=== PATIENT | male | born 1965 | race Caucasian/White ===

== ENCOUNTER → 2025-06-21 | Outpatient (CLI) | payer BC, SELFPAY ==
--- NOTE | 2025-06-21 13:34 | RAD_ITS ---
PROCEDURE: ORBITS FOR FOREIGN BODY 06/21/2025 REASON FOR EXAM: MRI CLEARANCE TECHNIQUE: Procedure Code: [id number]. Modality: DX Procedure: ORBITS FOR FOREIGN BODY COMPARISON: None FINDINGS: Bones: Metal artifact from dentures and dental amalgam. No worrisome radiopaque foreign body. Sinuses: Limited but grossly clear. Additional findings: No gross, depressed fracture. RAD/Orbits for Foreign Body IMPRESSION: No worrisome radiopaque foreign body. Reading Location: [id number]
--- NOTE | 2025-06-21 13:51 | MRI_ITS ---
PROCEDURE: BRAIN W/WO CONTRAST 06/21/2025 REASON FOR EXAM: TRANSIENT CEREBRAL ISCHEMIC ATTACK UNSPECIFIED TECHNIQUE: Procedure Code: [id number] Modality: MR Procedure: BRAIN W/WO CONTRAST Multiplanar and multisequence images were obtained. CONTRAST: VOLUME: mL FINDINGS: Scattered confluence and focal FLAIR hyperintensities throughout the bilateral cerebral white matter, nonspecific and nonenhancing. The brain parenchyma appears otherwise unremarkable. The midline structures are intact, specifically the corpus callosum, septum pellucidum, pituitary gland, and cerebellar vermis. The cervicomedullary junction appears unremarkable. The orbits and their contents appear unremarkable. The visualized paranasal sinuses and mastoid air cells are clear. Diffusion-weighted images demonstrate no acute process. No abnormal enhancement pattern. MRI/Brain W/WO Contrast IMPRESSION: 1. Nonspecific, nonenhancing FLAIR hyperintensities within the bilateral cereb ral white matter, probably representing chronic microvascular ischemic changes. Similar findings can also be seen in patients experiencing migraine headaches. A demyelinating process is less likely. Reading Location: [id number]
--- OUTSIDE RECORDS SUMMARY | 2025-06-21 21:15 | XMS RPT_ITS | CCD ---
Author Organization [facility] Care Team Providers Care Automotive Alignment Specialist Name Role Phone REYNA CAMPBELL, SCOTT Primary Care Physician REYNA CAMPBELL, SCOTT Primary Care Cindy CAMPBELL, SCOTT Attending Pineda e REYNA OMER-SHOE PARTS CASER, SCOTT Primary Care Pineda CORDOBA MD, TONE Willard Attending Paddy able REYNA OMER-SHOE [employer] CASER, SCOTT Primary Care Pineda LAN MD, DR FRANK Attending Pineda ORELLANA TRIPE COOKER-SHOE PARTS CASER, SCOTT Primary Care [facility]ineda [facility] Anne Attending Andrew nunez Allergies Allergy Classification Reported Allergen(s) Allergy Type Date of Onset Reaction(s) Facility (1 source) Penicillins; Translations: [penicillins] Drug allergy SOB [facility] (1 source) Penicillin; Translations: [penicillins] Drug Allergy SOB [facility] Medications Current Medications Medication Drug Class(es) Dates Sig (Normalized) Sig (Original) Ascorbic Acid (2 sources) Vitamin C Start: 12-23-2024 take 1 tablet by mouth once daily Vitamin C 1 tab(s), Oral, qDay, unsure of mg, 0 Refill(s) Start Date: 12/23/24 Status: Ordered Medication Dispense Status: Completed Total Allowed Fills: 1 Fills Dispensed: 0 Start: 12-23-2024 take 1 tablet by hermann once daily Vitamin C 1 tab(s), Oral, qDay, unsure of mg, 0 Refill(s) Start Date: 12/23/24 Status: Ordered Repeat number: 1 MAGNESIUM GLUCONATE (2 sources) Start: 12-23-2024 take 1 tablet by mouth once daily magnesium gluconate 1 tab(s), Oral, qDay, unsure of mg, 0 Refill(s) Start Date: 12/23/24 Status: Ordered Medication Dispense Status: Completed Total Allowed Fills: 1 Fills Dispensed: 0 Start: 12-23-2024 take 1 tablet by hermann th once daily magnesium gluconate 1 tab(s), Oral, qDay, unsure of mg, 0 Refill(s) Start Date: 12/23/24 Status: Ordered Repeat number: 1 Niacin (2 sources) Nicotinic Acid Start: 12-23-2024 take 1 tablet by mouth once daily niacin 1 tab(s), Oral, qDay, unsure of mg, 0 Refill(s) Start Date: 12/23/24 Status: Ordered Medication Dispense Status: Completed Total Allowed Fills: 1 Fills Dispensed: 0 Start: 12-23-2024 take 1 tablet by hermann th once daily niacin 1 tab(s), Oral, qDay, unsure of mg, 0 Refill(s) Start Date: 12/23/24 Status: Ordered Repeat number: 1 Vitamin A (2 sources) Vitamin A Start: 12-23-2024 take 1 tablet by mouth once daily vitamin A 1 tab(s), Oral, qDay, unsure of mg, 0 Refill(s) Start Date: 12/23/24 Status: Ordered Medication Dispense Status: Completed Total Allowed Fills: 1 Fills Dispensed: 0 Start: 12-23-2024 take 1 tablet by hermann th once daily vitamin A 1 tab(s), Oral, qDay, unsure of mg, 0 Refill(s) Start Date: 12/23/24 Status: Ordered Repeat number: 1 Vitamin D3 (2 sources) Start: 12-23-2024 take 1 tablet by hermann th once daily Vitamin D3 1 tab(s), Oral, Daily, unsure of mg, 0 Refill(s) Start Date: 12/23/24 Status: Ordered Medication Dispense Status: Completed Total Allowed Fills: 1 Fills Dispensed: 0 Start: 12-23-2024 take 1 tablet by hermann th once daily Vitamin D3 1 tab(s), Oral, Daily, unsure of mg, 0 Refill(s) Start Date: 12/23/24 Status: Ordered Repeat number: 1 Problems Problem Classification Problem Date Documented Da te Episodic/Chronic Chronic obstructive pulmonary disease and bronchiectasis (2 sources) Bronchitis 09-08-2022 Episodic Other nervous system disorders (1 source) Anesthesia of skin; Translations: [Anesthesia of skin] Onset: 06-10-2025 Episodic Other nervous system disorders (1 source) Anesthesia of skin; Translations: [Anesthesia of skin] Onset: 06-10-2025 Episodic Unclassified (2 sources) Patient encounter status 12-23-2024 Results Test Name Value Interpretation Reference Range Facility .Auto Diffon 06-10-2025 Basophil, Absolute 0.0 10 3/mcL Normal 0.0-0.3 [facility] Comment on above: Performed By: #### P RO, APTT, MDW, ANEU, ADIFF, CBC, TROPHS, BMP, GFR #### [address] [address] Basophils/100 WBC (Bld) 0.3 % Normal 0.0-2.5 [facility] Comment on above: Performed By: #### P RO, APTT, MDW, ANEU, ADIFF, CBC, TROPHS, BMP, GFR #### [address] [address] Eosinophil, Absolute 0.2 10 3/mcL Normal 0.0-0.7 [facility] Comment on above: Performed By: #### P RO, APTT, MDW, ANEU, ADIFF, CBC, TROPHS, BMP, GFR #### [address] [address] Eosinophils/100 WBC (Bld) 2.0 % Normal 0.0-6.0 [facility] Comment on above: Performed By: #### P RO, APTT, MDW, ANEU, ADIFF, CBC, TROPHS, BMP, GFR #### [address] [address] Lymphocyte, Absolute 2.8 10 3/mcL Normal 0.9-4.3 [facility] Comment on above: Performed By: #### P RO, APTT, MDW, ANEU, ADIFF, CBC, TROPHS, BMP, GFR #### [address] [address] Lymphocytes/100 WBC (Bld) 32.8 % Normal 20.0-40.0 [facility] Comment on above: Performed By: #### P RO, APTAlexa, MOMO, ANEU, ADIFF, CBC, TROPHS, BMP, GFR #### [id number] [place], [place] [address] Monocyte, Absolute 0.6 10 3/mcL Normal 0.1-1.4 [facility] Comment on above: Performed By: #### P RO, APTT, MDW, ANEU, ADIFF, CBC, TROPHS, BMP, GFR #### [id number] [place], [place] [address] Monocytes/100 WBC (Bld) 7.6 % Normal 2.0-13.0 [facility] Comment on above: Performed By: #### P AVILA, APTT, MOMO, ANEU, ADIFF, CBC, TROPHS, BMP, GFR #### [address] [address] Neutrophils/100 WBC (Bld) 57.3 % Normal 50.0-75.0 [facility] Comment on above: Performed By: #### P AVILA, APTAlexa, MOMO, ANEU, ADIFF, CBC, TROPHS, BMP, GFR #### [address] [address] .GFRon 06-10-2025 Estimated Glomerular Filtration Rate 100 ml/min/1.73sqm Normal [facility] Comment on above: Result Comment: Stages of Chronic Kidney Disease (CKD) Stage Description eGFR(ml/min/1.73 sq.m.) CKD 1 Normal kidney function or >=90 normal kindney function with possible kidney damage (ex. Proteinuria) CKD 2 Kidney damage with mild loss 60-89 of kidney function CKD 3a Mild to moderate loss of kidney 45-59 function CKD 3b Moderate to severe loss of 30-44 of kindey function CKD 4 Severe loss of kidney function 15-29 CKD 5 Kidney failure <15 Note: (go live 2024) the eGFR calculation was updated to the 2020 CKD-EPI creatinine equation without a race factor to calculate the eGFR results. Performed By: #### P TUSHAR GRAMAJO MDW, ANEU, ADIFF, CBC, TROPHS, BMP, GFR ####[address] [address] .MDWon 06-10-2025 Monocyte Distribution Width 16.46 Normal 0.00-20.00 [facility] Comment on above: Result Comment: For ED adult patients suspected of sepsis, MDW<=20.0 does not rule out sepsis or risk of sepsis Performed By: #### P RO, APTT, MDW, ANEU, ADIFF, CBC, TROPHS, BMP, GFR #### [address] [address] .NEUABSon 06-10-2025 Neutrophil, Absolute 4.8 10 3/mcL Normal 2.3-8.1 [facility] Comment on above: Performed By: #### P RO, APTT, MDW, ANEU, ADIFF, CBC, TROPHS, BMP, GFR #### [place] [address] Amanda 06-10-2025 Ethanol Level 15 mg/dL Normal [facility] Comment on above: Performed By: #### A LC #### [place] [id number] APTTon 06-10-2025 aPTT Coag (Bld) [Time] 28.0 s Normal 25.0-35.0 [facility] Comment on above: Result Comment: For Heparin anticoagulation therapy, the recommended therapeutic range is: 55.2-92.5 seconds. Patients on heparin therapy may have an extreme result. Performed By: #### P RO, APTT, MDW, ANEU, ADIFF, CBC, TROPHS, BMP, GFR ####[address] [address] BMPon 06-10-2025 BUN/Creatinine Ratio 20 ratio Normal 7-27 [facility] Comment on above: Performed By: #### P RO, APTT, MDW, ANEU, ADIFF, CBC, TROPHS, BMP, GFR ####[place] [id number] Calcium [Mass/Vol] 9.4 mg/dL Normal 8.4-10.2 [facility] Comment on above: Performed By: #### P RO, APTT, MDW, ANEU, ADIFF, CBC, TROPHS, BMP, GFR ####[address] [place], [place] [address] Chloride [Moles/Vol] 104 mmol/L Normal 98-107 [facility] Comment on above: Performed By: #### P RO, APTT, MDW, ANEU, ADIFF, CBC, TROPHS, BMP, GFR ####[address] [address] CO2 [Moles/Vol] 27 mmol/L Normal 23-31 [facility] Comment on above: Performed By: #### P RO, APTT, MDW, ANEU, ADIFF, CBC, TROPHS, BMP, GFR ####[address] [address] Creatinine [Mass/Vol] 0.82 mg/dL Normal 0.67-1.17 [facility] Comment on above: Performed By: #### P RO, APTT, MDW, ANEU, ADIFF, CBC, TROPHS, BMP, GFR ####[address] [address] Electrolyte Balance 7.0 mEq/L Normal 4.0-15.0 [facility] Comment on above: Performed By: #### P RO, APTT, MDW, ANEU, ADIFF, CBC, TROPHS, BMP, GFR ####[address] [address] Glucose [Mass/Vol] 94 mg/dL Normal 80-115 [facility] Comment on above: Performed By: #### P RO, APTT, MDW, ANEU, ADIFF, CBC, TROPHS, BMP, GFR ####[address] [address] Potassium [Moles/Vol] 3.8 mmol/L Normal 3.5-5.1 [facility] Comment on above: Performed By: #### P RO, APTT, MDW, ANEU, ADIFF, CBC, TROPHS, BMP, GFR ####[place] [address] Sodium [Moles/Vol] 138 mmol/L Normal 136-145 [facility] Comment on above: Performed By: #### P RO, APTT, MDW, ANEU, ADIFF, CBC, TROPHS, BMP, GFR ####[place] [address] Urea nitrogen [Mass/Vol] 16 mg/dL Normal 7-18 [facility] Comment on above: Performed By: #### P RO, APTT, MDW, ANEU, ADIFF, CBC, TROPHS, BMP, GFR ####[place] [address] CBCon 06-10-2025 Erythrocyte distribution width (RBC) [Ratio] 12.5 % Normal 11.5-15.5 [facility] Comment on above: Performed By: #### P RO, APTT, MDW, ANEU, ADIFF, CBC, TROPHS, BMP, GFR #### [place] [address] Hematocrit (Bld) [Volume fraction] 45.3 % Normal 40.0-52.0 [facility] Comment on above: Performed By: #### P RO, APTT, MDW, ANEU, ADIFF, CBC, TROPHS, BMP, GFR #### [address] [address] Hgb 15.6 G/dL Normal 13.0-17.5 [facility] Comment on above: Performed By: #### P RO, APTT, MDW, ANEU, ADIFF, CBC, TROPHS, BMP, GFR #### [place] [address] MCH (RBC) [Entitic mass] 31.6 pg Normal 27.0-33.0 [facility] Comment on above: Performed By: #### P RO, APTT, MDW, ANEU, ADIFF, CBC, TROPHS, BMP, GFR #### [address] [address] MCHC 34.4 G/dL Normal 32.0-36.0 [facility] Comment on above: Performed By: #### P RO, APTT, MDW, ANEU, ADIFF, CBC, TROPHS, BMP, GFR #### [address] [address] MCV (RBC) [Entitic vol] 91.9 fL Normal 81.0-100.0 [facility] Comment on above: Performed By: #### P RO, APTT, MDW, ANEU, ADIFF, CBC, TROPHS, BMP, GFR #### [place] [id number] Platelet 68 10 3/mcL Low 150-450 [facility] Comment on above: Performed By: #### P RO, APTT, MDW, ANEU, ADIFF, CBC, TROPHS, BMP, GFR #### [place] [phone] Platelet mean volume (Bld) [Entitic vol] 9.6 fL Normal 6.4-10.5 [facility] Comment on above: Performed By: #### P RO, APTT, MDW, ANEU, ADIFF, CBC, TROPHS, BMP, GFR #### [address] [address] RBC 4.93 10 6/mcL Normal 4.50-6.00 [facility] Comment on above: Performed By: #### P RO, APTT, MDW, ANEU, ADIFF, CBC, TROPHS, BMP, GFR #### [address] [address] WBC 8.4 10 3/mcL Normal 4.5-10.8 [facility] Comment on above: Performed By: #### P RO, APTT, MDW, ANEU, ADIFF, CBC, TROPHS, BMP, GFR #### [address] [address] [address] HEAD OR BRAIN W/O RICK Ton 06-10-2025 CT HEAD OR BRAIN W/O CONTRAST ORIGINAL EXAMINATION: CT OF THE HEAD WITHOUT CONTRAST 06/10/2025 9:01 pm TECHNIQUE: CT of the head was performed without the administration of intravenous contrast. Automated exposure control, iterative reconstruction, and/or weight based adjustment of the mA/kV was utilized to reduce the radiation dose to as low as reasonably achievable. COMPARISON: None. HISTORY: ORDERING SYSTEM PROVIDED HISTORY: Reason for Exam: left sided numbness since resolved change in mental status/weakness/aphasi a FINDINGS: BRAIN/VENTRICLES: There is no acute intracranial hemorrhage, mass effect or midline shift. No abnormal extra-axial fluid collection. The petersen-white differentiation is maintained without evidence of an acute infarct. There is no evidence of hydrocephalus. ORBITS: The visualized portion of the orbits demonstrate no acute abnormality. SINUSES: The visualized paranasal sinuses and mastoid air cells demonstrate no acute abnormality. SOFT TISSUES/SKULL: No acute abnormality of the visualized skull or soft tissues. IMPRESSION: No acute intracranial abnormality. Interpreted by: Jm Cornelius Preliminary Report By: Jm Cornelius Electronically signed By Jm Cornelius Dictated Date: 06/10/2025 9:23:05 PM Prelim Date: 06/10/2025 9:24:33 PM Sign Date: 06/10/2025 9:24:33 PM Ordering Provider: TONE Caballero [facility]ORATORYOrdered By: SYSTEM SYSTEM on 06-10-2025 aPTT Coag (PPP) [Time] 28.0 s Normal 25.0 - 35.0 seconds AO [facility] SS Comment on above: Interpretive Data: F or Heparin anticoagulation therapy, the recommended therapeutic range is: 55.2-92.5 seconds. Patients on heparin therapy may have an extreme result. Basophils (Bld) [#/Vol] 0.0 103/mcL Normal 0.0 - 0.3 10^3/mcL AO Workflow SS Basophils/100 WBC (Bld) 0.3 % Normal 0.0 - 2.5 % AO Workflow SS Calcium [Mass/Vol] 9.4 mg/dL Normal 8.4 - 10. 2 mg/dL AO ADM SS Chloride [Moles/Vol] 104 mmol/L Normal 98 - 10 7 mmol/L AO ADM SS CO2 [Moles/Vol] 27 mmol/L Normal 23 - 31 mmol/L AO ADM SS Creatinine [Mass/Vol] 0.82 mg/dL Normal 0.67 - 1.17 mg/dL AO ADM SS Electrolyte Balance 7.0 mEq/L Normal 4.0 - 15 .0 mEq/L AO ADM SS Eosinophil, Absolute 0.2 103/mcL Normal 0.0 - 0 .7 10^3/mcL AO Workflow SS Eosinophils/100 WBC (Bld) 2.0 % Normal 0.0 - 6.0 % AO Workflow SS Erythrocyte distribution width (RBC) [Ratio] 12.5 % Normal 11.5 - 15.5 % AO Workflow SS Estimated Glomerular Filtration Rate 100 ml/min/1.73sqm Invalid Interpretation Code AO Chemistry S Comment on above: Interpretive Data: Stages of Chronic Kidney Disease (CKD) Stage Description eGFR(ml/min/1.73 sq.m.) CKD 1 Normal kidney function or >=90 normal kindney function with possible kidney damage (ex. Proteinuria) CKD 2 Kidney damage with mild loss 60-89 of kidney function CKD 3a Mild to moderate loss of kidney 45-59 function CKD 3b Moderate to severe loss of 30-44 of kindey function CKD 4 Severe loss of kidney function 15-29 CKD 5 Kidney failure <15 Note: (go live 2024) the eGFR calculation was updated to the 2020 CKD-EPI creatinine equation without a race factor to calculate the eGFR results. Ethanol [Mass/Vol] 15 mg/dL Invalid Interpretation Code AO ADM SS Glucose [Mass/Vol] 94 mg/dL Normal 80 - 115 mg/dL AO ADM SS Hematocrit (Bld) [Volume fraction] 45.3 % Normal 40.0 - 52.0 % AO Workflow SS Hemoglobin (Bld) [Mass/Vol] 15.6 G/dL Normal 13.0 - 17.5 G/dL AO Workflow SS INR Coag (PPP) [Relative time] 1.0 {INR} Invalid Interpretation Code AO [facility] SS Comment on above: Interpretive Data: Alexa chaves [employer] (CHEST, 1992, 102:312S-25S) recommended therapeutic range for oral anticoagulant therapy is: LOW RISK: Prophylaxis of venous thrombosis INR: 2.0-3.0 Treatment of pulmonary embolism 2.0-3.0 Prevention of systemic embolism 2.0-3.0 HIGH RISK: Mechanical prosthetic valves 2.5-3.5 Lymphocytes (Bld) [#/Vol] 2.8 103/mcL Normal 0.9 - 4.3 10^3/mcL AO Workflow SS Lymphocytes/100 WBC (Bld) 32.8 % Normal 20.0 - 40.0 % AO Workflow SS MCH (RBC) [Entitic mass] 31.6 pg Normal 27.0 - 33.0 pg AO Workflow SS MCHC 34.4 G/dL Normal 32.0 - 36.0 G/dL AO Workflow SS MCV (RBC) [Entitic vol] 91.9 fL Normal 81.0 - 100.0 fL AO Workflow SS Monocyte distribution width Auto (Bld) [Entitic vol] 16.46 1 Normal 0.00 - 20.00 AO Workflow SS Comment on above: Result Comment: For ED adult patients suspected of sepsis, MDW<=20.0 does not rule out sepsis or risk of sepsis Monocytes (Bld) [#/Vol] 0.6 103/mcL Normal 0.1 - 1.4 10^3/mcL AO Workflow SS Monocytes/100 WBC (Bld) 7.6 % Normal 2.0 - 13.0 % AO Workflow SS Neutrophils (Bld) [#/Vol] 4.8 103/mcL Normal 2.3 - 8.1 10^3/mcL AO Workflow SS Neutrophils/100 WBC (Bld) 57.3 % Normal 50.0 - 75.0 % AO Workflow SS Platelet mean volume (Bld) [Entitic vol] 9.6 fL Normal 6.4 - 10.5 fL AO Workflow SS Platelets (Bld) [#/Vol] 68 103/mcL Low 150 - 450 10^3/mcL AO Workflow SS Potassium [Moles/Vol] 3.8 mmol/L Normal 3.5 - 5.1 mmol/L AO ADM SS PT Coag (PPP) [Time] 11.4 s Normal 9.0 - 1 4.4 seconds AO [facility] SS RBC (Bld) [#/Vol] 4.93 106/mcL Normal 4.50 - 6.0 0 10^6/mcL AO Workflow SS Sodium [Moles/Vol] 138 mmol/L Normal 136 - 145 mmol/L AO ADM SS Troponin I.cardiac DL <= 0.01 ng/mL [Mass/Vol] 5 ng/L Normal 0 - 76 ng/L AO ADM SS Comment on above: Interpretive Data: H igh Sensitive Troponin I Reference Ranges: Female: 0-51 ng/L Male: 0-76 ng/L Testing performed on Contin[employer] using a homogeneous sandwich chemiluminescent immunoassay based on OmniStrat technology. Urea nitrogen [Mass/Vol] 16 mg/dL Normal 7 - 18 mg/dL AO ADM SS Urea nitrogen/Creatinine [Mass ratio] 20 ratio Normal 7 - 27 ratio AO ADM SS WBC (Bld) [#/Vol] 8.4 103/mcL Normal 4.5 - 10.8 10^3/mcL AO Workflow SS PROon 06-10-2025 PT Coag (PPP) [Time] 11.4 s Normal 9.0-14.4 [facility] Comment on above: Performed By: #### P RO, APTT, MDW, ANEU, ADIFF, CBC, TROPHS, BMP, GFR ####[address] [place], [place] [address] PT International Ratio 1.0 Normal [facility] Comment on above: Result Comment: [employer] (CHEST, 1991, 102:312S-25S) recommended therapeutic range for oral anticoagulant therapy is: LOW RISK: Prophylaxis of venous thrombosis INR: 2.0-3.0 Treatment of pulmonary embolism 2.0-3.0 Prevention of systemic embolism 2.0-3.0 HIGH RISK: Mechanical prosthetic valves 2.5-3.5 Performed By: #### P RO, APTT, MDW, ANEU, ADIFF, CBC, TROPHS, BMP, GFR ####[address] [place], [place] [address] TROPHSon 06-10-2025 High Sensitivity Troponin I 5 ng/L Normal 0-76 [facility] Comment on above: Result Comment: High Sensitive Troponin I Reference Ranges: Female: 0-51 ng/L Male: 0-76 ng/L Testing performed on [employer] using a homogeneous sandwich chemiluminescent immunoassay based on OmniStrat technology. Performed By: #### P RO, APTT, MDW, ANEU, ADIFF, CBC, TROPHS, BMP, GFR ####[address] [place], [place] [address] XR CHEST 1 VIEWon 06-10-2025 XR CHEST 1 VIEW ORIGINAL EXAMINATION: ONE XRAY VIEW OF THE CHEST 06/10/2025 9:00 pm COMPARISON: CT chest 01/11/2025 HISTORY: ORDERING SYSTEM PROVIDED HISTORY: Reason for Exam: chest pain/SOB FINDINGS: There are subsegmental infiltrates at the medial right lower lung zone. There is no consolidation or pleural effusion. Cardiomediastinal silhouette is mildly enlarged in size. There is no pulmonary vascular congestion. There is no pneumothorax. Osseous structures demonstrate degenerative changes. IMPRESSION: There are subsegmental infiltrates at the medial right lower lung zone. There is no consolidation or pleural effusion. Interpreted by: Mario Low Preliminary Report By: Mario Low Electronically signed By Mario Low Dictated Date: 06/10/2025 10:10:36 PM Prelim Date: 06/10/2025 10:17:12 PM Sign Date: 06/10/2025 10:17:12 PM Ordering Provider: TONE CORDOBA [facility] XR SPINE CERVICAL 2 OR 3 EVA Mchugh 03-24-2025 XR SPINE CERVICAL 2 OR 3 VIEWS ORIGINAL EXAMINATION: 4 XRAY VIEWS OF THE CERVICAL SPINE 03/24/2025 4:50 pm COMPARISON: None. HISTORY: ORDERING SYSTEM PROVIDED HISTORY: Reason for Exam: pain FINDINGS: 7 cervical segments present in appropriate apposition and alignment. Moderate degenerative disc space narrowing affects C5-6 and C6-7. There is no bony encroachment upon the central spinal canal, although the canal is congenitally narrow in nature. No acute fracture is seen. IMPRESSION: 1. Degenerative disc disease C5-6 and C6-7. 2. Congenitally narrow cervical spinal canal. Interpreted by: Salvador Palafox DO Preliminary Report By: Salvador Palafox DO Electronically signed By Salvador Palafox DO Dictated Date: 03/24/2025 4:52:30 PM Prelim Date: 03/24/2025 4:53:21 PM Sign Date: 03/24/2025 4:53:21 PM Ordering Provider: TOSHA COBB [facility] Final Surgical Pathology Rep mary 01-31-2025 Final Surgical Pathology Report . Pathology Reports Accession: Collected Date/Time: Received Date/Time: Pathologist: [id number] 01/30/2025 08:35 EDT 01/30/2025 14:15 EDT JM AYON MD Final Surgical Pathology Report DIAGNOSIS: A. DISTAL SIGMOID COLON, POLYPECTOMY: - HYPERPLASTIC POLYP B. RECTUM, POLYPECTOMY: - TUBULAR ADENOMA CLINICAL INFORMATION: Procedure: COLONOSCOPY WITH POLYPECTOMY Preoperative diagnosis: HISTORY OF COLON POLYPS Postoperative diagnosis: HISTORY OF COLON POLYPS SPECIMEN: A DISTAL SIGMOID POLYP B RECTAL POLYP GROSS DESCRIPTION: All parts labelled with patient name and [id number] A. Received in formalin labeled distal sigmoid polyp are 4 fernandes-pink tissue fragments measuring 0.2 to 0.5 x 0.3 cm. TS-1 B. Received in formalin labeled rectal polyp is 1 fernandes-pink tissue fragment measuring 0.6 x 0.5 cm greatest dimension. TS-1 Kami Infante, Grossing Desulfurizer Hand/ Dr. Jm Ayon, Pathologist Performed by Kami Infante MICROSCOPIC DESCRIPTION: The microscopic examination is performed, except in the case of Gross Only. Verified by Pathology Report verified by [facility] JM AYON Sign out Date: 01/31/2025 14:23 Performing Lab: [facility], [address] [place] [address] Pathology Dept Disclaimer If ancillary studies were utilized, the following Laboratory Developed Test (LDT) disclaimer will apply: Under CLIA requirements, [facility] is qualified to perform high complexity testing. For all ancillary stains, positive and negative controls stain appropriately. Performance characteristics of immunohistochemical and chromogenic in-situ hybridization tests have been determined by [facility]. These tests are used for clinical purposes, They should not be regarded as investigational or for research. . Normal [facility] CT THORAX SCREENING W/O CONT RASTon 01-12-2025 CT THORAX SCREENING W/O CONTRAST ORIGINAL EXAMINATION: LOW DOSE SCREENING CT OF THE CHEST WITHOUT CONTRAST01/11/2025 4:18 pm TECHNIQUE: Low dose lung cancer screening CT of the chest was performed without the administration of intravenous contrast. Multiplanar reformatted images are provided for review. Automated exposure control, iterative reconstruction, and/or weight based adjustment of the mA/kV was utilized to reduce the radiation dose to as low as reasonably achievable. COMPARISON: None. HISTORY: ORDERING SYSTEM PROVIDED HISTORY: Reason for Exam: Lung Cancer Screening 5ft 10in 187lb white male. just quit smoking. 35 pack years. no current complaints, no family hx FINDINGS: The heart is normal in size. Atherosclerosis seen of the coronary arteries and aorta. The great vessels appear normal in caliber. Borderline enlarged AP window lymph node measuring 1 cm in short axis. No additional mediastinal, hilar or axillary lymph nodes. Mild bilateral gynecomastia. 3.2 cm low-attenuation right adrenal nodule demonstrating a mean Hounsfield unit of -6 is consistent with a lipid rich adenoma. No suspicious findings seen in the visualized portion of the abdomen. The abdomen is not evaluated in detail. Trachea and mainstem bronchi are patent. Minimal emphysema with scattered bilateral pleural and parenchymal scarring. No focal consolidation, pleural effusion or pneumothorax. 4 mm right upper lobe pulmonary nodule (series 4, image 48). 4 mm subpleural right lower lobe pulmonary nodule (series 4, image 83). Additional 4 mm right lower lobe subpleural pulmonary nodule (series 4, image 62). 2 mm right lung base nodule (series 4, image 99). Punctate calcified granuloma within the right middle lobe. No aggressive osseous lesions visible. Degenerative changes seen in the spine. IMPRESSION: Small lung nodules. For patients with appropriate lung cancer risk, annual CT screening is recommended. Coronary artery calcifications. 3.2 cm benign right lipid rich adrenal adenoma. Information below is for Lung nodule tracking purposes: Nodule: S3 BLN Other Findings: P-CAC Change: Na Recall : 1yr scr Recall Type: LDCT LungRads: 2s Interpreted by: Jm Han Preliminary Report By: Jm Han Electronically signed By Jm Han Dictated Date: 01/12/2025 8:02:02 AM Prelim Date: 01/12/2025 8:09:49 AM Sign Date: 01/12/2025 8:09:49 AM Ordering Provider: SCOTT ORELLANA [facility] Final Surgical Pathology Rep mary 03-14-2020 Final Surgical Pathology Report . Pathology Reports Accession: Collected Date/Time: Received Date/Time: Pathologist: [id number] 03/12/2020 08:16 EDT 03/13/2020 08:45 EDT MD CLAUDIO ORTIZ Final Surgical Pathology Report DIAGNOSIS: SIGMOID COLON, 25CM, BIOPSY - TUBULAR ADENOMA. COMMENT: [facility] - D# [id number] CLINICAL INFORMATION: Procedure: COLONOSCOPY WITH POLYPECTOMY Preoperative diagnosis: RECTAL BLEED Postoperative diagnosis: SAME SPECIMEN: A SIGMOID POLYP @ 25 CM GROSS DESCRIPTION: Received in formalin, labeled with the patients name, Case #[id number], and sigmoid polyp at 25 cm is 1 fernandes smooth polyp measuring 0.7 x 0.6 x 0.5 cm. Excision margin is inked black. TS -1, bisected Dictated by AVINASH JORDAN MICROSCOPIC DESCRIPTION: Slides reviewed. Electronically Signed by Pathology Report verified by [facility] Electronically signed by CLAUDIO ORTIZ MD Sign out Date: 03/14/2020 14:16 Performing Lab: [facility], [address] [place] [address] Normal [facility] [place] Comment on above: Performed By: #### S PFR #### [place] [address] .Auto Diffon 02-06-2020 Ammonia (P) [Mass/Vol] 0.60 10 3/mcL Normal 0.15-1.00 [facility] [place] Comment on above: Performed By: #### C BC, ADIFF, ANEU, PSA, TSH, LIPID, CMP, GFR #### [address] [address] Basophils (Bld) [#/Vol] 0.00 10 3/mcL Normal 0.00-0.19 [facility] [place] Comment on above: Performed By: #### C BC, ADIFF, ANEU, PSA, TSH, LIPID, CMP, GFR #### [address] [address] Basophils/100 WBC (Bld) 0.6 % Normal 0.0-2.5 [facility] [place] Comment on above: Performed By: #### C BC, ADIFF, ANEU, PSA, TSH, LIPID, CMP, GFR #### [address] [address] Eosinophils (Bld) [#/Vol] 0.10 10 3/mcL Normal 0.00-0.40 [facility] [place] Comment on above: Performed By: #### C BC, ADIFF, ANEU, PSA, TSH, LIPID, CMP, GFR #### [address] [address] Eosinophils/100 WBC (Bld) 2.0 % Normal 0.0-7.0 [facility] [place] Comment on above: Performed By: #### C BC, ADIFF, ANEU, PSA, TSH, LIPID, CMP, GFR #### [address] [address] Lymphocytes (Bld) [#/Vol] 2.80 10 3/mcL Normal 0.77-3.85 [facility] [place] Comment on above: Performed By: #### C BC, ADIFF, ANEU, PSA, TSH, LIPID, CMP, GFR #### [address] [address] Lymphocytes/100 WBC (Bld) 43.0 % Normal 10.0-50.0 [facility] [place] Comment on above: Performed By: #### C BC, ADIFF, ANEU, PSA, TSH, LIPID, CMP, GFR #### [address] [address] Monocytes/100 WBC (Bld) 9.1 % Normal 1.7-13.0 [facility] [place] Comment on above: Performed By: #### C BC, ADIFF, ANEU, PSA, TSH, LIPID, CMP, GFR #### [address] [address] Neutrophils/100 WBC (Bld) 45.3 % Normal 37.0-80.0 [facility] [place] Comment on above: Performed By: #### C BC, ADIFF, ANEU, PSA, TSH, LIPID, CMP, GFR #### [address] [address] .GFRon 02-06-2020 GFR Non- 74 ml/min/1.73sqm Normal [facility] [place] Comment on above: Result Comment: GFR Population mean for , Non- Americans Ages 20-29 = 116 mL/min/1.73 sq.m. Ages 30-39 = 107 mL/min/1.73 sq.m. Ages 40-49 = 99 mL/min/1.73 sq.m. Ages 50-59 = 93 mL/min/1.73 sq.m. Ages 60-69 = 85 mL/min/1.73 sq.m. Ages 70+ = 75 mL/min/1.73 sq.m. Chronic Kidney Disease: Less than 60 mL/min/1.73 square meters End Stage Renal Disease: Less than 15 mL/min/1.73 square meters Performed By: #### C BC, ADIFF, ANEU, PSA, TSH, LIPID, CMP, GFR #### [address] [address] GFR 90 ml/min/1.73sqm Normal [facility] [place] Comment on above: Result Comment: GFR Population mean for , Non- Americans Ages 20-29 = 116 mL/min/1.73 sq.m. Ages 30-39 = 107 mL/min/1.73 sq.m. Ages 40-49 = 99 mL/min/1.73 sq.m. Ages 50-59 = 93 mL/min/1.73 sq.m. Ages 60-69 = 85 mL/min/1.73 sq.m. Ages 70+ = 75 mL/min/1.73 sq.m. Chronic Kidney Disease: Less than 60 mL/min/1.73 square meters End Stage Renal Disease: Less than 15 mL/min/1.73 square meters Performed By: #### C BC, ADIFF, ANEU, PSA, TSH, LIPID, CMP, GFR #### [address] [address] .NEUABSon 02-06-2020 Neutrophils (Bld) [#/Vol] 2.90 10 3/mcL Normal 2.85-6.16 [facility] [place] Comment on above: Performed By: #### C BC, ADIFF, ANEU, PSA, TSH, LIPID, CMP, GFR #### [address] [address] CBCon 02-06-2020 Erythrocyte distribution width (RBC) [Ratio] 12.5 % Normal 11.5-14.5 [facility] [place] Comment on above: Performed By: #### C BC, ADIFF, ANEU, PSA, TSH, LIPID, CMP, GFR #### [address] [address] Hematocrit (Bld) [Volume fraction] 44.9 % Normal 42.0-52.0 [facility] [place] Comment on above: Performed By: #### C BC, ADIFF, ANEU, PSA, TSH, LIPID, CMP, GFR #### [address] [address] Hemoglobin (Bld) [Mass/Vol] 15.2 G/dL Normal 14.0-18.0 [facility] [place] Comment on above: Performed By: #### C BC, ADIFF, ANEU, PSA, TSH, LIPID, CMP, GFR #### [address] [address] MCH (RBC) [Entitic mass] 31.9 pg High 27.0-31.2 [facility] [place] Comment on above: Performed By: #### C BC, ADIFF, ANEU, PSA, TSH, LIPID, CMP, GFR #### [address] [address] MCHC (RBC) [Mass/Vol] 33.9 G/dL Normal 31.8-35.4 [facility] ([place] Comment on above: Performed By: #### C BC, ADIFF, ANEU, PSA, TSH, LIPID, CMP, GFR #### [address] [address] MCV (RBC) [Entitic vol] 94.0 fL Normal 80.0-94.0 [facility] [place] Comment on above: Performed By: #### C BC, ADIFF, ANEU, PSA, TSH, LIPID, CMP, GFR #### [address] [address] Platelet mean volume (Bld) [Entitic vol] 7.8 fL Normal 7.4-10.4 [facility] [place] Comment on above: Performed By: #### C BC, ADIFF, ANEU, PSA, TSH, LIPID, CMP, GFR #### [address] [address] Platelets (Bld) [#/Vol] 213 10 3/mcL Normal 130-400 [facility] [place] Comment on above: Performed By: #### C BC, ADIFF, ANEU, PSA, TSH, LIPID, CMP, GFR #### [address] [address] RBC (Bld) [#/Vol] 4.77 10 6/mcL Normal 4.04-6.13 [facility] ([place] Comment on above: Performed By: #### C BC, ADIFF, ANEU, PSA, TSH, LIPID, CMP, GFR #### [address] [address] WBC (Bld) [#/Vol] 6.40 10 3/mcL Normal 4.60-10.80 [facility] ([place] Comment on above: Performed By: #### C BC, ADIFF, ANEU, PSA, TSH, LIPID, CMP, GFR #### [address] [address] CMPon 02-06-2020 Albumin [Mass/Vol] 4.3 G/dL Normal 3.5-5.0 [facility]) Comment on above: Performed By: #### C BC, ADIFF, ANEU, PSA, TSH, LIPID, CMP, GFR #### [address] [address] Albumin/Globulin [Mass ratio] 1.4 {ratio} Normal 1.1-2.5 [facility]) Comment on above: Performed By: #### C BC, ADIFF, ANEU, PSA, TSH, LIPID, CMP, GFR #### [address] [address] ALP [Catalytic activity/Vol] 57 U/L Normal 40-135 [facility] [place] Comment on above: Performed By: #### C BC, ADIFF, ANEU, PSA, TSH, LIPID, CMP, GFR #### [address] [address] ALT [Catalytic activity/Vol] 49 U/L High 10-35 [facility] [place] Comment on above: Performed By: #### C BC, ADIFF, ANEU, PSA, TSH, LIPID, CMP, GFR #### [address] [address] AST [Catalytic activity/Vol] 25 U/L Normal 10-40 [facility] ([place] Comment on above: Performed By: #### C BC, ADIFF, ANEU, PSA, TSH, LIPID, CMP, GFR #### [address] [address] Bili Total 0.4 mg/dL Normal 0.2-1.0 [facility] [place] Comment on above: Result Comment: Use of this assay is not recommended for patients undergoing treatment with eltrombopag due to the potential for falsely elevated results. Performed By: #### C BC, ADIFF, ANEU, PSA, TSH, LIPID, CMP, GFR #### [address] [address] Calcium [Mass/Vol] 9.7 mg/dL Normal 8.4-10.2 [facility] ([place]) Comment on above: Performed By: #### C BC, ADIFF, ANEU, PSA, TSH, LIPID, CMP, GFR #### [address] [address] Chloride [Moles/Vol] 104 mmol/L Normal 98-107 [facility] ([place] Comment on above: Performed By: #### C BC, ADIFF, ANEU, PSA, TSH, LIPID, CMP, GFR #### [address] [address] CO2 [Moles/Vol] 30 mmol/L High 22-29 [facility] ([place] Comment on above: Performed By: #### C BC, ADIFF, ANEU, PSA, TSH, LIPID, CMP, GFR #### [address] [address] Creatinine [Mass/Vol] 1.04 mg/dL Normal 0.70-1.30 [facility] ([place] Comment on above: Performed By: #### C BC, ADIFF, ANEU, PSA, TSH, LIPID, CMP, GFR #### [address] [address] Electrolyte Balance 8.0 mEq/L Normal [facility] ([place] Comment on above: Performed By: #### C BC, ADIFF, ANEU, PSA, TSH, LIPID, CMP, GFR #### [address] [address] Globulin (S) [Mass/Vol] 3.0 G/dL Normal [facility] ([place] Comment on above: Performed By: #### C BC, ADIFF, ANEU, PSA, TSH, LIPID, CMP, GFR #### [address] [address] Glucose [Mass/Vol] 99 mg/dL Normal 70-105 [facility] ([place] Comment on above: Performed By: #### C BC, ADIFF, ANEU, PSA, TSH, LIPID, CMP, GFR #### [address] [address] Potassium [Moles/Vol] 4.2 mmol/L Normal 3.5-5.1 [facility] ([place] Comment on above: Performed By: #### C BC, ADIFF, ANEU, PSA, TSH, LIPID, CMP, GFR #### [address] [address] Protein [Mass/Vol] 7.3 G/dL Normal 6.4-8.2 [facility] ([place] Comment on above: Performed By: #### C BC, ADIFF, ANEU, PSA, TSH, LIPID, CMP, GFR #### [address] [address] Sodium [Moles/Vol] 142 mmol/L Normal 136-145 [facility] ([place] Comment on above: Performed By: #### C BC, ADIFF, ANEU, PSA, TSH, LIPID, CMP, GFR #### [address] [address] Urea nitrogen [Mass/Vol] 20 mg/dL High 7-18 [facility] ([place] Comment on above: Performed By: #### C BC, ADIFF, ANEU, PSA, TSH, LIPID, CMP, GFR #### [address] [address] Urea nitrogen/Creatinine [Mass ratio] 19 ratio Normal 7-27 [facility] ([place] Comment on above: Performed By: #### C BC, ADIFF, ANEU, PSA, TSH, LIPID, CMP, GFR #### [address] [address] LIPIDon 02-06-2020 Cholesterol [Mass/Vol] 213 mg/dL High 0-200 [facility] [place] Comment on above: Result Comment: Chol esterol Reference Interval: Less than 200 Desirable 200-239 Borderline high risk 240 and above High risk Performed By: #### C BC, ADIFF, ANEU, PSA, TSH, LIPID, CMP, GFR #### [address] [address] Cholesterol in HDL [Mass/Vol] 75 mg/dL High 40-60 [facility] [place] Comment on above: Performed By: #### C BC, ADIFF, ANEU, PSA, TSH, LIPID, CMP, GFR #### [address] [address] Cholesterol in LDL [Mass/Vol] 117 mg/dL Normal 0-130 [facility] ([place] Comment on above: Performed By: #### C BC, ADIFF, ANEU, PSA, TSH, LIPID, CMP, GFR #### [address] [address] Triglyceride [Mass/Vol] 106 mg/dL Normal 0-150 [facility] [place] Comment on above: Result Comment: Trig lyceride Reference Interval: Less than 150 Normal 150-199 Borderline high risk 200-499 High risk 500 or higher Very high risk Performed By: #### C BC, ADIFF, ANEU, PSA, TSH, LIPID, CMP, GFR #### [address] [address] PSAon 02-06-2020 Prostate Specific Antigen 1.60 ng/mL Normal 0.00-4.00 [facility] ([place] Comment on above: Performed By: #### C BC, ADIFF, ANEU, PSA, TSH, LIPID, CMP, GFR #### [address] [place], [place] [address] TSHon 02-06-2020 TSH Qn 2.31 mcIU/mL Normal 0.36-3.74 [facility] ([place] Comment on above: Performed By: #### C BC, ADIFF, ANEU, PSA, TSH, LIPID, CMP, GFR #### [place] [id number] [place], [place] [address] Encounters Encounter Date Encounter Type Care Provider Facility Start: 06-10-2025 End: 06-10-2025 Emergency department patient visit TONE CORDOAB MD [facility] Start: 03-24-2025 End: 03-24-2025 ambulatory SCOTT BALTES [employer] Facility:[facility] Start: 03-24-2025 End: 03-24-2025 Patient encounter procedure TOSHA COBB [employer] [facility] Start: 01-30-2025 End: 01-30-2025 ambulatory SCOTT BALTES [employer] Facility:[facility] Start: 01-11-2025 End: 01-11-2025 ambulatory SCOTT BALTES [employer] Facility:[facility] Procedures Date Procedure Procedure Detail Performing Clinician Start: 03-12-2020 Colonoscopy TOSHA ARNOLD [employer] Payers Date Payer Category Payer Private Health Insurance [id number] 2025 Unknown [id number] 1965 Unknown [id number] .. [id number] 1965 Unknown [id number] 2.. [id number] 1964 Unknown [id number] [id number] [id number] 1965 Unknown [id number] Social History Date Type Detail Facility Start: 12-23-2024 Tobacco smoking status Ex-smoker (laura lucio) [facility] [place] Comment on above: Just quit 2 weeks ag o. 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 Sexual Orientation [facility] Start: 08-10-2015 Sex Male (finding) [facility] Hospital Discharge instructions 06-11-2025 Note Date & Type Note Facility 06-11-2025 Hospital Discharg e instructions Patient Education 06/10/2025 22:18:41 Migraines and Cluster Headaches Migraines and Cluster Headaches Migraines and cluster headaches cause intense, throbbing pain on one side of the head. With a migraine, you may have nausea and vomiting and be sensitive to light and sound. You may also have warning signs, such as flashing lights or loss of parts of your vision, before the pain starts. This is called an aura. Migraines are 3 times more common in women than men. This may be due to hormonal changes during menstruation. Typical migraines may last for 4 to 72 hours untreated. Cluster headaches recur in groups for days, weeks, or months. The pain is centered around or behind one eye. The eye may also become red or teary, or the eyelid may droop. Migraines and cluster headaches can have many triggers. Preventing migraines and cluster headaches Try the following steps: Don't eat aged cheeses, nuts, beans, chocolate, red wine, or foods that contain caffeine, alcohol, tobacco, nitrates, and MSG. Try not to skip meals. Don t work in poor lighting. Reduce stress as much as you can. Get plenty of sleep each night. Exercise regularly under your doctor s guidance. Don't take headache medicines for more than 3 days, because of the risk of rebound headaches. Don't take certain prescription medicines that are known to cause rebound headaches. Relieving the pain Try these suggestions: Stay quiet and rest. Use cold to numb the pain. Wrap ice or a cold can of soda in a cloth. Hold it against the site of pain for 10 minutes. Repeat every 20 minutes. Stay out of the light. Wear dark glasses, returned goods sorter lights, and close the curtains. When outdoors, wear a brimmed hat. Drink lots of fluids. Sip caffeine-free flat soda to help relieve nausea. See your doctor if you get migraines or cluster headaches often. There are effective medicines to help treat or prevent them. Hormone therapy. This may help women whose migraines are related to hormonal changes during menstruation. 3401-1785 [employer]. [address] [place] [address]. All rights reserved. This information is not intended as a substitute for professional medical care. Always follow your healthcare professional's instructions. Follow Up Care 06/10/2025 19:58:30 With:SCOTT ORELLANA Address: [address] [place] [id number] [phone] When:2-4 days [facility] Clinical Note 06-10-2025 Note Date & Type Note Facility 06-10-2025 Note Discharge Instructions Thank you for allowing [facility] to assist you with your healthcare needs. The following is important discharge information regarding your hospital visit. Diagnosis from Today's Visit Numbness What to Do Next Instructions from Your Care Team No qualifying data available. Post Acute Orders No qualifying data available. You Need to Schedule the Following Appointments Follow Up with SCOTT ORELLANA When:Within 2-4 days Where:[address] [place] [id number] [phone] Allergies penicillins SOB Medications Please ask your primary doctor or pharmacist before taking any other medication not listed, including over the counter drugs, herbal medications, vitamins and or supplements as they may interact with your home medications. What How Much When Instructions Last Dose Unchanged ascorbic acid (Vitamin C) 1 tab(s) by mouth Once a day unsure of mg Unchanged cholecalciferol (Vitamin D3) 1 tab(s) by mouth Every day unsure of mg Unchanged magnesium gluconate 1 tab(s) by mouth Once a day unsure of mg Unchanged niacin 1 tab(s) by mouth Once a day unsure of mg Unchanged vitamin A 1 tab(s) by mouth Once a day unsure of mg Please take this list to your next doctor s visit. Bring all medications you take, including over the counter medications, herbals and other supplements with you to your doctor s visit. Patients and families are reminded to discard old lists and to update any records with all medication providers or retail pharmacies. Education Materials Migraines and Cluster Headaches Migraines and cluster headaches cause intense, throbbing pain on one side of the head. With a migraine, you may have nausea and vomiting and be sensitive to light and sound. You may also have warning signs, such as flashing lights or loss of parts of your vision, before the pain starts. This is called an aura. Migraines are 3 times more common in women than men. This may be due to hormonal changes during menstruation. Typical migraines may last for 4 to 72 hours untreated. Cluster headaches recur in groups for days, weeks, or months. The pain is centered around or behind one eye. The eye may also become red or teary, or the eyelid may droop. Migraines and cluster headaches can have many triggers. Preventing migraines and cluster headaches Try the following steps: Don't eat aged cheeses, nuts, beans, chocolate, red wine, or foods that contain caffeine, alcohol, tobacco, nitrates, and MSG. Try not to skip meals. Don t work in poor lighting. Reduce stress as much as you can. Get plenty of sleep each night. Exercise regularly under your doctor s guidance. Don't take headache medicines for more than 3 days, because of the risk of rebound headaches. Don't take certain prescription medicines that are known to cause rebound headaches. Relieving the pain Try these suggestions: Stay quiet and rest. Use cold to numb the pain. Wrap ice or a cold can of soda in a cloth. Hold it against the site of pain for 10 minutes. Repeat every 20 minutes. Stay out of the light. Wear dark glasses, returned goods sorter lights, and close the curtains. When outdoors, wear a brimmed hat. Drink lots of fluids. Sip caffeine-free flat soda to help relieve nausea. See your doctor if you get migraines or cluster headaches often. There are effective medicines to help treat or prevent them. Hormone therapy. This may help women whose migraines are related to hormonal changes during menstruation. 3098-0526 [employer]. [address] [place] [address], [place] [address]. All rights reserved. This information is not intended as a substitute for professional medical care. Always follow your healthcare professional's instructions. Additional Information VACCINATE! IT SAVES LIVES! Members of the community who have not yet received the COVID-19 vaccine and would like to receive it can visit one of [facility] vaccine clinics. There are many vaccine clinic locations within the [facility]. For locations and available times, please visit www.gettheshot.coronavirus.[place].gov/. It is important to note that some COVID mobile vaccine clinics are held outdoors and may be canceled in rainy or stormy conditions. To learn more about pediatric vaccinations (ages 5-11), we invite you to visit the [facility] webpage. https://www.[employer].org/pages/2 462-Fopee-Utkyufbdtbx-Frequently-Asked -Questions.html To learn more about the COVID-19 vaccine, we invite you to visit the CDC website for a list of frequently asked questions. https://www.cdc.gov/coronavirus/2019-n cov/vaccines/faq.html [facility] Patient Portal Access Instructions: Stay connected with your healthcare team and access your personal medical information anytime with the [facility] Patient Portal. If you would like a full copy of your medical records please contact the [facility] Medical Records Department Thursday through Thursday between 8a.m. and 4:30p.m. Please follow the directions below to access the portal: 1.Access the email account you provided upon registration to the hospital.2.Look for an invitation email from [facility].3.Open the email and access the invitation link: Accept Invitation to [facility]4.Fill in the required parks to create your account. Sign into www.[employer] with your username and password that you created in the above steps to stay up to date. You can then view a summary of results, a summary of your visits, and the ability to download your summaries to your computer or send the information securely to a physician. Remember that your healthcare information is confidential, so carefully consider who you will allow to register on the [facility] Patient Portal for access to your information. You can also access the [facility] Patient Portal on the [facility]. Simply click on Health Records under Health Data and then click on the [employer] logo. HOW TO SAFELY DISPOSE OF PRESCRIPTION MEDICATIONS Please use one of the following methods to safely dispose of your unused medications. 1.Use a drug disposal kit: the drug disposal pouch allows you to safely discard your old and unused drugs. Ask your nurse to give you one when you are discharged.2.Visit a local take-back location: Many local pharmacies and police departments have programs that collect old and unwanted prescription drugs. Call your local pharmacy or go to http://Access Network.REAL SAMURAI/4J0Aj6w to find one close to you.3.Make use of household items: Use cat litter or old coffee grounds to dispose medications if other options are not available. Mix your drugs with these household products, seal them in an airtight container and throw it into the garbage. Call [facility]: [phone] to be sure your drugs can be disposed of in this way. Some medicines may require a different approach.4.Never flush your medications down the toilet. IF YOU HAVE BEEN PRESCRIBED AN OPIOIDS FOR PAIN If you have been prescribed an opioid (such as hydrocodone, oxycodone or morphine), it is critical to understand the possible side effects and risks of opioid pain medications. Even when taken as directed, opioids can have several side effects including: Tolerance, meaning you might need to take more of a medication for the same pain relief. Nausea, vomiting and/or constipation. Sleepiness, dizziness, dry mouth, confusion, depression or itching. Physical dependence, meaning you have withdrawal symptoms when a medication is stopped ? this can develop within a few days. KNOW YOUR RESPONSIBILITIES It is important to know exactly how much and how often to take the opioid pain medications you are prescribed. Never take opioids in higher amounts or more often than prescribed. Do not combine opioids with alcohol or other drugs that cause drowsiness, such as benzodiazepines, also known as benzos, including diazepam and alprazolam, muscle relaxants or sleep aids. Never sell or share prescription opioids. This is illegal. Store opioids in a secure place and out of reach of others (including children, family, friends and visitors). The last page(s) of this document has been signed and retained as a CHART COPY Signatures Patient Education Materials Migraines and Cluster Headaches Medication Leaflets My discharge plan and instructions have been reviewed and explained to me and SAM Palma DOUGLAS C understand my current condition and have read and understand these discharge instructions. I have received a written copy of the plan/instructions. If I have questions, I am aware that I should contact my doctor. 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 Automated exposure control, iterative reconstruction, and/or weight based adjustment of the mA/kV was utilized to reduce the radiation dose to as low as reasonably achievable. COMPARISON: None. HISTORY: ORDERING SYSTEM PROVIDED HISTORY: Reason for Exam: left sided numbness since resolved change in mental status/weakness/aphasia FINDINGS: BRAIN/VENTRICLES: There is no acute intracranial hemorrhage, mass effect or midline shift. No abnormal extra-axial fluid collection. The petersen-white differentiation is maintained without evidence of an acute infarct. There is no evidence of hydrocephalus. ORBITS: The visualized portion of the orbits demonstrate no acute abnormality. SINUSES: The visualized paranasal sinuses and mastoid air cells demonstrate no acute abnormality. SOFT TISSUES/SKULL: No acute abnormality of the visualized skull or soft tissues. IMPRESSION: No acute intracranial abnormality. Interpreted by: Jm Cornelius Preliminary Report By: Jm Cornelius Electronically signed By Jm Cornelius Dictated Date: 06/10/2025 9:23:05 PM Prelim Date: 06/10/2025 9:24:33 PM Sign Date: 06/10/2025 9:24:33 PM [facility]10[facility] Note Date & Type Note Facility 06-10-2025 Note Exam Date Time Procedure Performing Provider Status 06/10/25 8:59 PM XR Chest 1 View MARIO LOW MD; A [facility] (Verified) [id number] ORIGINAL EXAMINATION: ONE XRAY VIEW OF THE CHEST 06/10/2025 9:00 pm COMPARISON: CT chest 01/11/2025 HISTORY: ORDERING SYSTEM PROVIDED HISTORY: Reason for Exam: chest pain/SOB FINDINGS: There are subsegmental infiltrates at the medial right lower lung zone. There is no consolidation or pleural effusion. Cardiomediastinal silhouette is mildly enlarged in size. There is no pulmonary vascular congestion. There is no pneumothorax. Osseous structures demonstrate degenerative changes. IMPRESSION: There are subsegmental infiltrates at the medial right lower lung zone. There is no consolidation or pleural effusion. Interpreted by: Mario Low Preliminary Report By: Mario Low Electronically signed By Mario Low Dictated Date: 06/10/2025 10:10:36 PM Prelim Date: 06/10/2025 10:17:12 PM Sign Date: 06/10/2025 10:17:12 PM [facility]ing [facility] 06-10-2025 Note Date & Type Note Facility 06-10-2025 Note Exam Date Time Procedure Performing Provider Status 06/10/25 8:20 PM EKG [ED AOH] - CV TONE CORDOBA MD; Auth (Verified) ECG Final Report Sinus rhythm Electronic Signature: TONE CORDOBA MD 06/10/2025 20:30:10 [facility] Clinical Note 03-24-2025 Note Date & Type Note Facility 03-24-2025 Note Exam Date Time Procedure Performing Provider Status 03/24/25 4:49 PM XR Spine Cervical 2 or 3 Views Rowena PALAFOX DO; Auth (Verified) [id number] ORIGINAL EXAMINATION: 4 XRAY VIEWS OF THE CERVICAL SPINE 03/24/2025 4:50 pm COMPARISON: None. HISTORY: ORDERING SYSTEM PROVIDED HISTORY: Reason for Exam: pain FINDINGS: 7 cervical segments present in appropriate apposition and alignment. Moderate degenerative disc space narrowing affects C5-6 and C6-7. There is no bony encroachment upon the central spinal canal, although the canal is congenitally narrow in nature. No acute fracture is seen. IMPRESSION: 1. Degenerative disc disease C5-6 and C6-7. 2. Congenitally narrow cervical spinal canal. Interpreted by: Salvador Palafox DO Preliminary Report By: Salvador Palafox DO Electronically signed By Salvador Palafox DO Dictated Date: 03/24/2025 4:52:30 PM Prelim Date: 03/24/2025 4:53:21 PM Sign Date: 03/24/2025 4:53:21 PM Ordering Provider: TOSHA COBB [facility] Evaluation + Plan note 03-23-2025 Radiology Note Date & Type Note Facility 03-23-2025 Evaluation + Plan note Future Scheduled TestsXR Spine Cervical AP/LAT 03/23/25 [facility] Hospital course Narrative Note Date & Type Note Facility Hospital course Narrative No data available for this section [facility] Hospital Discharge instructions Note Date & Type Note Facility Hospital Discharge instructions No data available for this section [facility] Progress note Note Date & Type Note Facility Progress note No data available for this section [facility] Summary Purpose Family History No Family History Records Found No data available for this section No data available for this section No Family History Records Found Advance Directives No Advanced Directives Records FoundNo Advanced Directives Records Found Additional Source Comments (unrecognized sect ion and content) No Status Records FoundNo Status Records Found INFORMATION SOURCE (unrecogn ized section and content) DATE CREATED AUTHOR 03/26/2020 [facility] ([place]) DATE CREATED AUTHOR AUTHOR'S ORGANIZ ATION 06/19/2025 [facility] Patient Care team informatio n (unrecognized section and content) Care Team Personnel Name: SCOTT ORELLANA Position: P4 Advanced Document Control Manager Member Role: Primary Care Physician Address: [address], [place] [address] Telecom: Care Team Related Persons Name: PANDA VARGAS Care Team Personnel Name: BHAKTISCOTT EM SHANNAN Position: P4 Advanced Document Control Manager Member Role: Primary Care Physician Address: [address] [place] [id number] Telecom: Care Team Related Persons Name: SAM PANDA FOR RECORDS PERTAINING TO PATIENTS WHO ARE OR HAVE BEEN ENROLLED IN A CHEMICAL DEPENDENCY/SUBSTANCEABUSE PROGRAM, SOME INFORMATION MAY BE OMITTED. This clinical summary was aggregated from multiple sources. Caution should be exercised in using it in the provision of clinical care. This summary normalizes information from multiple sources, and as a consequence, information in this document may materially change the coding, format and clinical context of patient data. In addition, data may be omitted in some cases. CLINICAL DECISIONS SHOULD BE BASED ON THE PRIMARY CLINICAL RECORDS. [employer] provides no warranty or guarantee of the accuracy or completeness of information in this document.
== END | disposition home or self-care (01) ==
LOC: MRI 13:31
PROVIDERS: PCP Nurse Practitioner Family; Referring Provider Psychiatry & Neurology Sleep Medicine; Visit Provider Psychiatry & Neurology Sleep Medicine
DX: G45.9 Transient cerebral ischemic attack, unspecified (principal)
CPT/HCPCS: 70030; 70553; A9575; A4216

== ENCOUNTER → 2025-07-17 | Outpatient (CLI) | payer BC, SELFPAY ==
--- NOTE | 2025-07-17 13:03 | ECHOD_ITS ---
Reason For Study Reason For Study: TIA Procedure This was a 2D Doppler, Color Flow transthoracic echocardiogram. Exam performed in department. Left Ventricle Normal LV size. The left ventricular ejection fraction is 55 %. No regional wall motion abnormalities noted. Right Ventricle Normal RV size. Normal systolic function. Atria Normal left atrium. Normal right atrium. Bubble contrast study negative for right to left interatrial shunt. Mitral Valve Normal mitral valve. Tricuspid Valve Normal tricuspid valve. Aortic Valve Normal aortic valve. Trisinus/trileaflet aortic valve. Pulmonic Valve Normal pulmonic valve. Great Vessels Normal aortic root. The pulmonary artery is normal size. Inferior vena cava collapse with respiration. Pericardium/Pleural No pericardial effusion. MMode/2D Measurements & Calculations LVIDd: 5.0 cm IVSd: 1.2 cm LVOT diam: 2.1 cm LVIDs: 3.6 cm LVPWd: 0.99 cm LVOT area: 3.4 cm2 RVDd: 3.9 cm FS: 28.8 % LAV(MOD-bp): 73.2 ml LVAd ap4: 32.2 cm2 SV(MOD-sp4): 55.5 ml LAV(MOD-bp) Indexed: 36.6 ml/m2 LVLd ap4: 8.2 cm SI(MOD-sp4): 27.7 ml/m2 LAV(MOD-sp2): 59.0 ml EDV(MOD-sp4): 104.7 ml LAV(MOD-sp4): 72.9 ml EDV(sp4-el): 106.9 ml LVAs ap4: 20.1 cm2 LVLs ap4: 6.8 cm ESV(MOD-sp4): 49.2 ml ESV(sp4-el): 50.1 ml EF(MOD-sp4): 53.0 % EF(sp4-el): 53.1 % SV(sp4-el): 56.8 ml LA A4 area: 24.4 cm2 LA dimension(2D): 3.9 cm RA A4 area: 18.1 cm2 Time Measurements MV dec time: 0.22 sec Doppler Measurements & Calculations MV E max ellis: 69.2 cm/sec Lat Peak E' Ellis: 14.3 cm/sec Med Peak E' Ellis: 9.8 cm/sec MV A max ellis: 54.9 cm/sec E/E' lat: 4.8 E/E' med: 7.1 MV E/A: 1.3 MV V2 max: 91.9 cm/sec Ao V2 max: 109.1 cm/sec MV max P.4 mmHg MV dec slope: 317.8 cm/sec2 Ao max P.8 mmHg MV V2 mean: 43.8 cm/sec Ao V2 mean: 76.1 cm/sec MV mean P.0 mmHg Ao mean P.6 mmHg MV V2 VTI: 36.8 cm Ao V2 VTI: 29.4 cm AV (velocity ratio): 0.82 MVA(VTI): 2.2 cm2 INNA(I,D): 2.8 cm2 INNA(V,D): 3.0 cm2 LV V1 max: 97.6 cm/sec SV(LVOT): 81.0 ml PA V2 max: 92.5 cm/sec LV V1 max P.8 mmHg PA V2 mean: 66.5 cm/sec LV V1 mean P.0 mmHg LV V1 mean: 66.3 cm/sec LV V1 VTI: 24.1 cm ECHO/Echo Complete Interpretation Summary Normal LV size. The left ventricular ejection fraction is 55 %. Bubble contrast study negative for right to left interatrial shunt. Ordering Physician: Adam Pond Referring Physician: Adam Pond Performed By: Sarah Beth Berrios RCS
--- OUTSIDE RECORDS SUMMARY | 2025-07-17 16:06 | XMS RPT_ITS | CCD ---
Author Organization [facility] Inform ion Partnership [facility] Care Team Providers Care Property Management Accountant Name Role Phone REYNA CAMPBELL, SCOTT Primary Care Physician REYNA CAMPBELL, SCOTT Primary Care Paddyabl e REYNA SCIENTIFIC TECHNICAL WRITER-MANAGER STUDY, SCOTT Attending Paddyabl e BHAKTITES SCIENTIFIC TECHNICAL WRITER-MANAGER STUDY, SCOTT Primary Care Unavailabl e BERYL RENEE, TONE Willard Attending Unavail able REYNA SCIENTIFIC TECHNICAL WRITER-MANAGER STUDY, SCOTT Primary Care Pineda LAN MD, DR FRANK Attending Unavailabl e BALTES SCIENTIFIC TECHNICAL WRITER-MANAGER STUDY, SCOTT Primary Care Unavailabl e GATITO SCIENTIFIC TECHNICAL WRITER-MANAGER STUDY, PATRICIA Anne Attending Andrew Pond MD, Dr. Medina Attending Physician Salty RENEE, Dr. Medina Referring Provider Gatito CHARLTON-Brian, Patricia Primary Care Physician Patricia Mederos Primary Adam Matos Referring Unavailable Adam Pond Attending Adam Frederick Attending Patricia Rojas [facility] Unavailable Adam Pond Referring Unavailable Allergies Allergy Classification Reported Allergen(s) Allergy Type Date of Onset Reaction(s) Facility (1 source) Penicillins; Translations: [penicillins] Drug allergy SOB [facility] (1 source) Penicillin; Translations: [penicillins] Drug Allergy SOB [facility] Medications Current Medications Medication Drug Class(es) Dates [...] tablet by hermann th once daily Vitamin C 1 tab(s), Oral, [...] Translations: [Anesthesia of skin] Onset: 06-10-2025 Episodic Transient cerebral ischemia (2 sources) Transient cerebral ischemic attack, unspecified; Translations: [Transient cerebral ischemic attack, unspecified] Onset: 07-04-2025 Chronic Unclassified (2 sources) Patient encounter status 12-23-2024 Results Test Name Value Interpretation Reference Range Facility Brain W/WO Contraston 2024 Brain W/WO Contrast [facility] Imaging Services [address] [place] [address] [id number] Brain W/WO Contrast MR#: [id number] Acct: [id number] Name: REBEKAH VARGAS Rep #: [id number] : 1965 M 60 From: Abdiel Lopez MD PCP: DELMA Carrasquillo Status: REG CLI Study: Brain W/WO Contrast Date of Exam: 06/21/25 Exam# [id number] Ordering Dr: Adam Pond MD PROCEDURE: BRAIN W/WO CONTRAST 06/21/2025 REASON FOR EXAM: TRANSIENT CEREBRAL ISCHEMIC ATTACK UNSPECIFIED TECHNIQUE: Procedure Code: MRIBRWW Modality: MR Procedure: BRAIN W/WO CONTRAST Multiplanar and multisequence images were obtained. CONTRAST: VOLUME: mL FINDINGS: Scattered confluence and focal FLAIR hyperintensities throughout the bilateral cerebral white matter, nonspecific and nonenhancing. The brain parenchyma appears otherwise unremarkable. The midline structures are intact, specifically the corpus callosum, septum pellucidum, pituitary gland, and cerebellar vermis. The cervicomedullary junction appears unremarkable. The orbits and their contents appear unremarkable. The visualized paranasal sinuses and mastoid air cells are clear. Diffusion-weighted images demonstrate no acute process. No abnormal enhancement pattern. MRI/Brain W/WO Contrast IMPRESSION: 1. Nonspecific, nonenhancing FLAIR hyperintensities within the bilateral cerebral white matter, probably representing chronic microvascular ischemic changes. Similar findings can also be seen in patients experiencing migraine headaches. A demyelinating process is less likely. Reading Location: [id number] CC: DELMA Mederos; Dr. Adam Pond MD Jukebox Route Driver: Signed Normal [facility] Magnetic resonance imaging r eportOrdered By: Abdiel Lopez on 06-21-2025 Study report [facility] Imaging Services [address] [facility] [place], [place] [address] Brain W/WO Contrast MR#: [id number] Acct: [id number] Name: REBEKAH VARGAS Rep #: [id number] : 1965 M 60 From: Jeramie Lopez MD PCP: DELMA Carrasquillo Status: REG CL I Study:Brain W/WO Contrast Date of Exam: 06/21/25 Exam# [id number] Ordering Dr: Adam Pond MD PROCEDURE: BRAIN W/WO CONTRAST 06/21/2025 REASON FOR EXAM: TRANSIENT CEREBRAL ISCHEMIC ATTACK UNSPECIFIED TECHNIQUE: Procedure Code: MRIBRWW Modality: MR Procedure: BRAIN W/WO CONTRAST Multiplanar and multisequence images were obtained. CONTRAST: VOLUME: mL FINDINGS: Scattered confluence and focal FLAIR hyperintensities throughout the bilateral cerebral white matter, nonspecific and nonenhancing. The brain parenchyma appears otherwise unremarkable. The midline structures areintact, specifically the corpus callosum, septum pellucidum, pituitary gland, and cerebellar vermis. The cervicomedullary junction appears unremarkable. The orbits and their contents appear unremarkable. The visualized paranasal sinuses and mastoid air cells are clear. Diffusion-weighted images demonstrate no acute process. No abnormal enhancement pattern. MRI/Brain W/WO Contrast IMPRESSION: 1. Nonspecific, nonenhancing FLAIR hyperintensities within the bilateral cerebral white matter, probably representing chronic microvascular ischemic changes. Similar findings can also be seen in patients experiencing migraine headaches. A demyelinating process is less likely. Reading Location: [id number] CC: CLIENT MANAGER LARGE LAWEssence Mederos; Dr. Adam Pond MD ~ Jukebox Route Driver: Signed [facility] Orbits for Foreign Bodyon Orbits for Foreign Body [facility] Imaging Services [address] [place], [place] [id number] Orbits for Foreign Body MR#: [id number] Acct: [id number] Name: REBEKAH VARGAS Rep #: [id number] : 1965 M 60 From: Reji Luther MD PCP: DELMA Carrasquillo Status: REG CLI Study: Orbits for Foreign Body Date of Exam: 06/21/25 Exam# [id number] Ordering Dr: Adam Pond MD PROCEDURE: ORBITS FOR FOREIGN BODY 06/21/2025 REASON FOR EXAM: MRI CLEARANCE TECHNIQUE: Procedure Code: RADORBFB2. Modality: DX Procedure: ORBITS FOR FOREIGN BODY COMPARISON: None FINDINGS: Bones: Metal artifact from dentures and dental amalgam. No worrisome radiopaque foreign body. Sinuses: Limited but grossly clear. Additional findings: No gross, depressed fracture. RAD/Orbits for Foreign Body IMPRESSION: No worrisome radiopaque foreign body. Reading Location: [id number] CC: CLIENT MANAGER LARGE LAWEssence Mederos; Dr. Adam Pond MD Jukebox Route Driver: Signed Normal [facility] .Auto Diffon 06-10-2025 Basophil, Absolute 0.0 10 3/mcL Normal 0.0-0.3 [facility] Comment on above: Performed By: #### P RO, APTT, MDW, ANEU, ADIFF, CBC, TROPHS, BMP, GFR #### [facility] [address] [place], [place] [address] Basophils/100 WBC (Bld) 0.3 % Normal 0.0-2.5 [facility] Comment on above: Performed By: #### P RO, APTT, MDW, ANEU, ADIFF, CBC, TROPHS, BMP, GFR #### [address] [address] Eosinophil, Absolute 0.2 10 3/mcL Normal 0.0-0.7 [facility] Comment on above: Performed By: #### P RO, APTT, MDW, ANEU, ADIFF, CBC, TROPHS, BMP, GFR #### [address] [address] Eosinophils/100 WBC (Bld) 2.0 % Normal 0.0-6.0 [facility] Comment on above: Performed By: #### P RO, APTT, MDW, ANEU, ADIFF, CBC, TROPHS, BMP, GFR #### [address] [address] Lymphocyte, Absolute 2.8 10 3/mcL Normal 0.9-4.3 [facility] Comment on above: Performed By: #### P RO, APTT, MDW, ANEU, ADIFF, CBC, TROPHS, BMP, GFR #### [address] [address] Lymphocytes/100 WBC (Bld) 32.8 % Normal 20.0-40.0 [facility] Comment on above: Performed By: #### P RO, APTT, MDW, ANEU, ADIFF, CBC, TROPHS, BMP, GFR #### [address] [address] Monocyte, Absolute 0.6 10 3/mcL Normal 0.1-1.4 [facility] Comment on above: Performed By: #### P RO, APTT, MDW, ANEU, ADIFF, CBC, TROPHS, BMP, GFR #### [address] [address] Monocytes/100 WBC (Bld) 7.6 % Normal 2.0-13.0 [facility] Comment on above: Performed By: #### P RO, APTT, MDW, ANEU, ADIFF, CBC, TROPHS, BMP, GFR #### [address] [address] Neutrophils/100 WBC (Bld) 57.3 % Normal 50.0-75.0 [facility] Comment on above: Performed By: #### P RO, APTT, MDW, ANEU, ADIFF, CBC, TROPHS, BMP, GFR #### [address] [address] .GFRon 06-10-2025 Estimated Glomerular Filtration Rate 100 ml/min/1.73sqm Normal [facility] Comment on above: Result Comment: Stages [...] the eGFR results. Performed By: #### P RO, APTT, MDW, ANEU, ADIFF, CBC, TROPHS, BMP, GFR ####[address] [address] .MDWon 06-10-2025 Monocyte Distribution Width 16.46 Normal 0.00-20.00 [facility] Comment on above: Result Comment: For ED adult patients suspected of sepsis, MDW<=20.0 does not rule out sepsis or risk of sepsis Performed By: #### P RO, APTT, MDW, ANEU, ADIFF, CBC, TROPHS, BMP, GFR #### [place] [address] [place], [place] [address] .NEUABSon 06-10-2025 Neutrophil, Absolute 4.8 10 3/mcL Normal 2.3-8.1 [facility] Comment on above: Performed By: #### P RO, APTT, MDW, ANEU, ADIFF, CBC, TROPHS, BMP, GFR #### [address] [address] Amanda 06-10-2025 Ethanol Level 15 mg/dL Normal [facility] Comment on above: Performed By: #### A LC #### [address] [address] APTTon 06-10-2025 aPTT Coag (Bld) [Time] 28.0 s Normal 25.0-35.0 [facility] Comment on above: Result Comment: For Heparin anticoagulation therapy, the recommended therapeutic range is: 55.2-92.5 seconds. Patients on heparin therapy may have an extreme result. Performed By: #### P RO, APTT, MDW, ANEU, ADIFF, CBC, TROPHS, BMP, GFR ####[address] [address] BMPon 06-10-2025 BUN/Creatinine Ratio 20 ratio Normal 7-27 [facility] Comment on above: Performed By: #### P RO, APTT, MDW, ANEU, ADIFF, CBC, TROPHS, BMP, GFR ####[address] [place], [place] [address] Calcium [Mass/Vol] 9.4 mg/dL Normal 8.4-10.2 [facility] Comment on above: Performed By: #### P RO, APTT, MDW, ANEU, ADIFF, CBC, TROPHS, BMP, GFR ####[address] [address] Chloride [Moles/Vol] 104 mmol/L Normal 98-107 [facility] Comment on above: Performed By: #### P RO, APTT, MDW, ANEU, ADIFF, CBC, TROPHS, BMP, GFR ####[address] [address] CO2 [Moles/Vol] 27 mmol/L Normal 23-31 [facility] Comment on above: Performed By: #### P RO, APTT, MDW, ANEU, ADIFF, CBC, TROPHS, BMP, GFR ####[facility] [place], [place] [address] Creatinine [Mass/Vol] 0.82 mg/dL Normal 0.67-1.[address] [facility] Comment on above: Performed By: #### P RO, APTT, MDW, ANEU, ADIFF, CBC, TROPHS, BMP, GFR ####[address] [place], [place] [address] Electrolyte Balance 7.0 mEq/L Normal 4.0-15.0 [facility] Comment on above: Performed By: #### P RO, APTT, MDW, ANEU, ADIFF, CBC, TROPHS, BMP, GFR ####[address] [place], [place] [address] Glucose [Mass/Vol] 94 mg/dL Normal 80-115 [facility] Comment on above: Performed By: #### P RO, APTT, MDW, ANEU, ADIFF, CBC, TROPHS, BMP, GFR ####[address] [address] Potassium [Moles/Vol] 3.8 mmol/L Normal 3.5-5.[address] [facility] Comment on above: Performed By: #### P RO, APTT, MDW, ANEU, ADIFF, CBC, TROPHS, BMP, GFR ####[address] [place], [place] [address] Sodium [Moles/Vol] 138 mmol/L Normal 136-145 [facility] Comment on above: Performed By: #### P RO, APTT, MDW, ANEU, ADIFF, CBC, TROPHS, BMP, GFR ####[address] [place], [place] [address] Urea nitrogen [Mass/Vol] 16 mg/dL Normal 7-18 [facility] Comment on above: Performed By: #### P RO, APTT, MDW, ANEU, ADIFF, CBC, TROPHS, BMP, GFR ####[address] [place], [place] [address] CBCon 06-10-2025 Erythrocyte distribution width (RBC) [Ratio] 12.5 % Normal 11.5-15.5 [facility] Comment on above: Performed By: #### P RO, APTT, MDW, ANEU, ADIFF, CBC, TROPHS, BMP, GFR #### [address] [address] Hematocrit (Bld) [Volume fraction] 45.3 % Normal 40.0-52.0 [facility] Comment on above: Performed By: #### P RO, APTT, MDW, ANEU, ADIFF, CBC, TROPHS, BMP, GFR #### [address] [address] Hgb 15.6 G/dL Normal 13.0-17.5 [facility] Comment on above: Performed By: #### P RO, APTT, MDW, ANEU, ADIFF, CBC, TROPHS, BMP, GFR #### [address] [address] MCH (RBC) [Entitic mass] 31.6 pg Normal 27.0-33.0 [facility] Comment on above: Performed By: #### P RO, APTT, MDW, ANEU, ADIFF, CBC, TROPHS, BMP, GFR #### [address] [address] MCHC 34.4 G/dL Normal 32.0-36.0 [facility] Comment on above: Performed By: #### P RO, APTT, MDW, ANEU, ADIFF, CBC, TROPHS, BMP, GFR #### [address] [address] MCV (RBC) [Entitic vol] 91.9 fL Normal 81.0-100.0 [facility] Comment on above: Performed By: #### P RO, APTT, MDW, ANEU, ADIFF, CBC, TROPHS, BMP, GFR #### [address] [address] Platelet 68 10 3/mcL Low 150-450 [facility] Comment on above: Performed By: #### P RO, APTT, MDW, ANEU, ADIFF, CBC, TROPHS, BMP, GFR #### [address] [address] Platelet mean volume (Bld) [Entitic vol] 9.6 fL Normal 6.4-10.5 [facility] Comment on above: Performed By: #### P RO, APTT, MDW, ANEU, ADIFF, CBC, TROPHS, BMP, GFR #### [address] [address] RBC 4.93 10 6/mcL Normal 4.50-6.00 [facility] Comment on above: Performed By: #### P RO, APTT, MDW, ANEU, ADIFF, CBC, TROPHS, BMP, GFR #### [address] [address] WBC 8.4 10 3/mcL Normal 4.5-10.8 [facility] Comment on above: Performed By: #### P RO, APTT, MDW, ANEU, ADIFF, CBC, TROPHS, BMP, GFR #### [address] [address] [address] HEAD OR BRAIN W/O CONTRAS Ton 06-10-2025 CT HEAD OR BRAIN W/O [...] shift. No abnormal extra-axial fluid collection. The peteresn-white differentiation is maintained without evidence of an [...] 06/10/2025 9:24:33 PM Ordering Provider: TONE Caballero [facility] LABORATORYOrdered By: SYSTEM SYSTEM on 06-10-2025 [...] Comment on above: Interpretive Data: Alexa chaves [employer] (CHEST, 1991, 102:312S-25S) [...] ng/L Male: 0-76 ng/L Testing performed on Streamweaver using a homogeneous sandwich chemiluminescent immunoassay based on Metconnex technology. Urea nitrogen [Mass/Vol] 16 mg/dL Normal 7 - 18 mg/dL AO ADM SS Urea nitrogen/Creatinine [Mass ratio] 20 ratio Normal 7 - 27 ratio AO ADM SS WBC (Bld) [#/Vol] 8.4 103/mcL Normal 4.5 - 10.8 10^3/mcL AO Workflow SS PROon 06-10-2025 PT Coag (PPP) [Time] 11.4 s Normal 9.0-14.4 [facility] Comment on above: Performed By: #### P RO, APTT, MDW, ANEU, ADIFF, CBC, TROPHS, BMP, GFR ####[address] [place], [place] [address] PT International Ratio 1.0 Normal [facility] Comment on above: Result Comment: [employer] (CHEST, 1992, 102:312S-25S) recommended therapeutic range for oral anticoagulant therapy is: LOW RISK: Prophylaxis of venous thrombosis INR: 2.0-3.0 Treatment of pulmonary embolism 2.0-3.0 Prevention of systemic embolism 2.0-3.0 HIGH RISK: Mechanical prosthetic valves 2.5-3.5 Performed By: #### P RO, APTT, MDW, ANEU, ADIFF, CBC, TROPHS, BMP, GFR ####[address] [place], [place] [address] [facility] High Sensitivity Troponin I 5 ng/L Normal 0-76 [facility] Comment on above: Result Comment: High Sensitive Troponin I Reference Ranges: Female: 0-51 ng/L Male: 0-76 ng/L Testing performed on [employer] using a homogeneous sandwich chemiluminescent immunoassay based on Met[employer] technology. Performed By: #### P RO, APTT, MDW, ANEU, ADIFF, CBC, TROPHS, BMP, GFR ####[address] [place], [place] [address] XR CHEST 1 VIEWon 06-10-2025 XR CHEST [...] 06/10/2025 10:17:12 PM Ordering Provider: TONE CORDOBA Normal [facility] XR SPINE CERVICAL 2 OR 3 VIE WSon 06-13-2025 XR SPINE CERVICAL 2 OR 3 VIEWS [...] Sign Date: 03/24/2025 4:53:21 PM Ordering Provider: PATRICIA Caballero [facility] Final Surgical Pathology Rep [facility] 01-31-2025 Final Surgical Pathology Report . Pathology Reports Accession: Collected Date/Time: Received Date/Time: Pathologist: [id number] 01/30/2025 08:35 EDT 01/30/2025 14:15 EDT JM AYON MD Final Surgical Pathology Report DIAGNOSIS: A. DISTAL SIGMOID COLON, POLYPECTOMY: - HYPERPLASTIC POLYP B. RECTUM, POLYPECTOMY: - TUBULAR ADENOMA CLINICAL INFORMATION: Procedure: COLONOSCOPY WITH POLYPECTOMY Preoperative diagnosis: HISTORY OF COLON POLYPS Postoperative diagnosis: HISTORY OF COLON POLYPS SPECIMEN: A DISTAL SIGMOID POLYP B RECTAL POLYP GROSS DESCRIPTION: All parts labelled with patient name and [id number] A. Received in formalin labeled distal sigmoid polyp are 4 fernandes-pink tissue fragments measuring 0.2 to 0.5 x 0.3 cm. TS-1 B. Received in formalin labeled rectal polyp is 1 fernandes-pink tissue fragment measuring 0.6 x 0.5 cm greatest dimension. TS-1 Kami Infante, Grossing Tone Artist Apprentice/ Dr. Jm Ayon, Pathologist Performed by Kami Infante MICROSCOPIC DESCRIPTION: The microscopic examination is performed, except in the case of Gross Only. Verified by Pathology Report verified by [facility] JM AYON Sign out Date: 01/31/2025 14:23 Performing Lab: [facility], [address] [place] [address] Pathology Dept Disclaimer If ancillary studies were utilized, the following Laboratory Developed Test (LDT) disclaimer will apply: Under CLIA requirements, [facility] is qualified to perform high complexity testing. For all ancillary stains, positive and negative controls stain appropriately. Performance characteristics of immunohistochemical and chromogenic in-situ hybridization tests have been determined by [facility]. These tests are used for clinical purposes, They should not be regarded as investigational or for research. . Normal [facility] CT THORAX SCREENING W/O CONT RASTon [...] Date: 01/12/2025 8:09:49 AM Ordering Provider: SCOTT Caballero [facility] Final Surgical Pathology Rep [facility] 03-14-2020 Final Surgical Pathology Report . Pathology Reports Accession: Collected Date/Time: Received Date/Time: Pathologist: [id number] 03/12/2020 08:16 EDT 03/13/2020 08:45 EDT MD CLAUDIO ORTIZ Final Surgical Pathology Report DIAGNOSIS: SIGMOID COLON, 25CM, BIOPSY - TUBULAR ADENOMA. COMMENT: [facility] - D# [id number] CLINICAL INFORMATION: Procedure: COLONOSCOPY WITH POLYPECTOMY Preoperative [...] Electronically Signed by Pathology Report verified by [facility] Electronically signed by CLAUDIO ORTIZ MD Sign out Date: 03/14/2020 14:16 Performing Lab: [facility], [address] [place] [address] Normal [facility] ([place]) Comment on above: Performed By: #### S PFR #### [place] [address] .Auto Diffon 02-06-2020 Ammonia (P) [Mass/Vol] 0.60 10 3/mcL Normal 0.15-1.00 [facility] ([place]) Comment on above: Performed By: #### C BC, ADIFF, ANEU, PSA, TSH, LIPID, CMP, GFR #### [address] [address] Basophils (Bld) [#/Vol] 0.00 10 3/mcL Normal 0.00-0.19 [facility] ([place]) Comment on above: Performed By: #### C BC, ADIFF, ANEU, PSA, TSH, LIPID, CMP, GFR #### [address] [address] Basophils/100 WBC (Bld) 0.6 % Normal 0.0-2.5 [facility] ([place]) Comment on above: Performed By: #### C BC, ADIFF, ANEU, PSA, TSH, LIPID, CMP, GFR #### [address] [address] Eosinophils (Bld) [#/Vol] 0.10 10 3/mcL Normal 0.00-0.40 [facility] ([place]) Comment on above: Performed By: #### C BC, ADIFF, ANEU, PSA, TSH, LIPID, CMP, GFR #### [address] [address] Eosinophils/100 WBC (Bld) 2.0 % Normal 0.0-7.0 [facility] ([place]) Comment on above: Performed By: #### C BC, ADIFF, ANEU, PSA, TSH, LIPID, CMP, GFR #### [address] [address] Lymphocytes (Bld) [#/Vol] 2.80 10 3/mcL Normal 0.77-3.85 [facility] ([place]) Comment on above: Performed By: #### C BC, ADIFF, ANEU, PSA, TSH, LIPID, CMP, GFR #### [address] [address] Lymphocytes/100 WBC (Bld) 43.0 % Normal 10.0-50.0 [facility] ([place]) Comment on above: Performed By: #### C BC, ADIFF, ANEU, PSA, TSH, LIPID, CMP, GFR #### [address] [address] Monocytes/100 WBC (Bld) 9.1 % Normal 1.7-13.0 [facility] ([place]) Comment on above: Performed By: #### C BC, ADIFF, ANEU, PSA, TSH, LIPID, CMP, GFR #### [address] [address] Neutrophils/100 WBC (Bld) 45.3 % Normal 37.0-80.0 [facility] ([place]) Comment on above: Performed By: #### C BC, ADIFF, ANEU, PSA, TSH, LIPID, CMP, GFR #### [address] [address] .GFRon 02-06-2020 GFR Non- 74 ml/min/1.73sqm Normal [facility] ([place]) Comment on above: Result Comment: GFR Population [...] ANEU, PSA, TSH, LIPID, CMP, GFR #### [address] [address] GFR 90 ml/min/1.73sqm Normal [facility] ([place]) Comment on above: Result Comment: GFR Population [...] ANEU, PSA, TSH, LIPID, CMP, GFR #### [address] [address] .NEUABSon 02-06-2020 Neutrophils (Bld) [#/Vol] 2.90 10 3/mcL Normal 2.85-6.16 [facility] ([place]) Comment on above: Performed By: #### C BC, ADIFF, ANEU, PSA, TSH, LIPID, CMP, GFR #### [address] [address] CBCon 02-06-2020 Erythrocyte distribution width (RBC) [Ratio] 12.5 % Normal 11.5-14.5 [facility] ([place]) Comment on above: Performed By: #### C BC, ADIFF, ANEU, PSA, TSH, LIPID, CMP, GFR #### [place] [id number] Hematocrit (Bld) [Volume fraction] 44.9 % Normal 42.0-52.0 [facility] ([place]) Comment on above: Performed By: #### C BC, ADIFF, ANEU, PSA, TSH, LIPID, CMP, GFR #### [address] [address] Hemoglobin (Bld) [Mass/Vol] 15.2 G/dL Normal 14.0-18.0 [facility] ([place]) Comment on above: Performed By: #### C BC, ADIFF, ANEU, PSA, TSH, LIPID, CMP, GFR #### [address] [address] MCH (RBC) [Entitic mass] 31.9 pg High 27.0-31.2 [facility] ([place]) Comment on above: Performed By: #### C BC, ADIFF, ANEU, PSA, TSH, LIPID, CMP, GFR #### [address] [address] MCHC (RBC) [Mass/Vol] 33.9 G/dL Normal 31.8-35.4 [facility] ([place]) Comment on above: Performed By: #### C BC, ADIFF, ANEU, PSA, TSH, LIPID, CMP, GFR #### [address] [address] MCV (RBC) [Entitic vol] 94.0 fL Normal 80.0-94.0 [facility] ([place]) Comment on above: Performed By: #### C BC, ADIFF, ANEU, PSA, TSH, LIPID, CMP, GFR #### [address] [address] Platelet mean volume (Bld) [Entitic vol] 7.8 fL Normal 7.4-10.4 [facility] ([place]) Comment on above: Performed By: #### C BC, ADIFF, ANEU, PSA, TSH, LIPID, CMP, GFR #### [address] [address] Platelets (Bld) [#/Vol] 213 10 3/mcL Normal 130-400 [facility] ([place]) Comment on above: Performed By: #### C BC, ADIFF, ANEU, PSA, TSH, LIPID, CMP, GFR #### [address] [address] RBC (Bld) [#/Vol] 4.77 10 6/mcL Normal 4.04-6.13 [facility] ([place]) Comment on above: Performed By: #### C BC, ADIFF, ANEU, PSA, TSH, LIPID, CMP, GFR #### [address] [address] WBC (Bld) [#/Vol] 6.40 10 3/mcL Normal 4.60-10.80 [facility] ([place]) Comment on above: Performed By: #### C BC, ADIFF, ANEU, PSA, TSH, LIPID, CMP, GFR #### [address] [address] CMPon 02-06-2020 Albumin [Mass/Vol] 4.3 G/dL Normal 3.5-5.0 [facility] ([place]) Comment on above: Performed By: #### C BC, ADIFF, ANEU, PSA, TSH, LIPID, CMP, GFR #### [address] [address] Albumin/Globulin [Mass ratio] 1.4 {ratio} Normal 1.1-2.5 [facility] ([place]) Comment on above: Performed By: #### C BC, ADIFF, ANEU, PSA, TSH, LIPID, CMP, GFR #### [address] [address] ALP [Catalytic activity/Vol] 57 U/L Normal 40-135 [facility] ([place]) Comment on above: Performed By: #### C BC, ADIFF, ANEU, PSA, TSH, LIPID, CMP, GFR #### [address] [address] ALT [Catalytic activity/Vol] 49 U/L High 10-35 [facility] ([place]) Comment on above: Performed By: #### C BC, ADIFF, ANEU, PSA, TSH, LIPID, CMP, GFR #### [address] [address] AST [Catalytic activity/Vol] 25 U/L Normal 10-40 [facility] ([place]) Comment on above: Performed By: #### C BC, ADIFF, ANEU, PSA, TSH, LIPID, CMP, GFR #### [address] [address] Bili Total 0.4 mg/dL Normal 0.2-1.0 [facility] ([place]) Comment on above: Result Comment: Use of this assay is not recommended for patients undergoing treatment with eltrombopag due to the potential for falsely elevated results. Performed By: #### C BC, ADIFF, ANEU, PSA, TSH, LIPID, CMP, GFR #### [address] [address] Calcium [Mass/Vol] 9.7 mg/dL Normal 8.4-10.2 [facility] ([place]) Comment on above: Performed By: #### C BC, ADIFF, ANEU, PSA, TSH, LIPID, CMP, GFR #### [address] [address] Chloride [Moles/Vol] 104 mmol/L Normal 98-107 [facility] ([place]) Comment on above: Performed By: #### C BC, ADIFF, ANEU, PSA, TSH, LIPID, CMP, GFR #### [address] [address] CO2 [Moles/Vol] 30 mmol/L High 22-29 [facility] ([place]) Comment on above: Performed By: #### C BC, ADIFF, ANEU, PSA, TSH, LIPID, CMP, GFR #### [address] [address] Creatinine [Mass/Vol] 1.04 mg/dL Normal 0.70-1.30 [facility] ([place]) Comment on above: Performed By: #### C BC, ADIFF, ANEU, PSA, TSH, LIPID, CMP, GFR #### [address] [address] Electrolyte Balance 8.0 mEq/L Normal [facility] ([place]) Comment on above: Performed By: #### C BC, ADIFF, ANEU, PSA, TSH, LIPID, CMP, GFR #### [address] [address] Globulin (S) [Mass/Vol] 3.0 G/dL Normal [facility] ([place]) Comment on above: Performed By: #### C BC, ADIFF, ANEU, PSA, TSH, LIPID, CMP, GFR #### [address] [address] Glucose [Mass/Vol] 99 mg/dL Normal 70-105 [facility] ([place]) Comment on above: Performed By: #### C BC, ADIFF, ANEU, PSA, TSH, LIPID, CMP, GFR #### [address] [address] Potassium [Moles/Vol] 4.2 mmol/L Normal 3.5-5.1 [facility] ([place]) Comment on above: Performed By: #### C BC, ADIFF, ANEU, PSA, TSH, LIPID, CMP, GFR #### [address] [address] Protein [Mass/Vol] 7.3 G/dL Normal 6.4-8.2 [facility] ([place]) Comment on above: Performed By: #### C BC, ADIFF, ANEU, PSA, TSH, LIPID, CMP, GFR #### [address] [address] Sodium [Moles/Vol] 142 mmol/L Normal 136-145 [facility] ([place]) Comment on above: Performed By: #### C BC, ADIFF, ANEU, PSA, TSH, LIPID, CMP, GFR #### [address] [address] Urea nitrogen [Mass/Vol] 20 mg/dL High 7-18 [facility] ([place]) Comment on above: Performed By: #### C BC, ADIFF, ANEU, PSA, TSH, LIPID, CMP, GFR #### [address] [address] Urea nitrogen/Creatinine [Mass ratio] 19 ratio Normal 7-27 [facility] ([place]) Comment on above: Performed By: #### C BC, ADIFF, ANEU, PSA, TSH, LIPID, CMP, GFR #### [address] [address] LIPIDon 02-06-2020 Cholesterol [Mass/Vol] 213 mg/dL High 0-200 [facility] ([place]) Comment on above: Result Comment: Chol esterol Reference Interval: Less than 200 Desirable 200-239 Borderline high risk 240 and above High risk Performed By: #### C BC, ADIFF, ANEU, PSA, TSH, LIPID, CMP, GFR #### [address] [address] Cholesterol in HDL [Mass/Vol] 75 mg/dL High 40-60 [facility] ([place]) Comment on above: Performed By: #### C BC, ADIFF, ANEU, PSA, TSH, LIPID, CMP, GFR #### [address] [address] Cholesterol in LDL [Mass/Vol] 117 mg/dL Normal 0-130 [facility] ([place]) Comment on above: Performed By: #### C BC, ADIFF, ANEU, PSA, TSH, LIPID, CMP, GFR #### [address] [address] Triglyceride [Mass/Vol] 106 mg/dL Normal 0-150 [facility] ([place]) Comment on above: Result Comment: Trig lyceride Reference Interval: Less than 150 Normal 150-199 Borderline high risk 200-499 High risk 500 or higher Very high risk Performed By: #### C BC, ADIFF, ANEU, PSA, TSH, LIPID, CMP, GFR #### [address] [address] PSAon 02-06-2020 Prostate Specific Antigen 1.60 ng/mL Normal 0.00-4.00 [facility] ([place]) Comment on above: Performed By: #### C BC, ADIFF, ANEU, PSA, TSH, LIPID, CMP, GFR #### [address] [address] TSHon 02-06-2020 TSH Qn 2.31 mcIU/mL Normal 0.36-3.74 [facility] ([place]) Comment on above: Performed By: #### C BC, ADIFF, ANEU, PSA, TSH, LIPID, CMP, GFR #### [address] [address] Encounters Encounter Date Encounter Type Care Provider Facility Start: 07-17-2025 ambulatory [facility] Facility: [facility] Start: 06-21-2025 End: 06-21-[address] Adam Pond MD Work Phone: -[facility] Start: 06-21-2025 End: 06-21-[address] Adam Pond MD -[facility] Work Phone: Start: 06-21-2025 End: 06-21-2025 ambulatory Adam Pond Facility:[facility] Start: 06-10-2025 End: 06-10-2025 Emergency department patient visit TONE CORDOBA MD [facility] Start: 03-24-2025 End: 03-24-2025 ambulatory SCOTT ORELLANA SCIENTIFIC TECHNICAL WRITER-MANAGER STUDY Facility[facility] Start: 03-24-2025 End: 03-24-2025 Patient encounter procedure PATRICIA MEDEROS SCIENTIFIC TECHNICAL WRITER-MANAGER STUDY [facility] Start: 01-30-2025 End: 01-30-2025 ambulatory SCOTT ORELLANA SCIENTIFIC TECHNICAL WRITER-MANAGER STUDY Facility:[facility] Start: 01-11-2025 End: 01-11-2025 ambulatory SCOTT ORELLANA SCIENTIFIC TECHNICAL WRITER-[facility] Facility[facility] Procedures Date Procedure Procedure Detail Performing Clinician Start: 06-21-2025 MRI of brain with contrast Dr. Adam Pond MD Work Phone: Start: 06-21-2025 Radiologic examinati on eye detect foreign body Dr. Adam Pond MD Work Phone: Start: 03-12-2020 Colonoscopy PATRICIA ARNOLD SCIENTIFIC TECHNICAL WRITER-MANAGER STUDY Payers Date Payer Category Payer Self-pay 2025 Private Health Insurance [id number] 2025 Unknown [id number] 1965 Unknown [id number] [id number]. [id number] 1965 Unknown [id number] 2.16. [id number] 1965 Unknown [id number] 2.16.8 [id number] 1965 Unknown [id number] 2.16.8 [id number] Unknown [id number] 2.16.8 [id number] Unknown [id number] 2.16.8 [id number] Social History Date Type Detail Facility Start: 12-23-2024 Tobacco smoking status Ex-smoker (fi nding) [facility] Comment on above: Just quit 2 weeks ag o. 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 Sexual Orientation [facility] Start: 08-10-2015 Sex Male (finding) [facility] Tobacco smoking stat us NHIS Unknown if ever smoked [facility] Work Phone: Sex Male [facility] Start: 1965 Sex Assigned At Male [facility] Clinical Notes 03-23-2025 to 06-21-2025 Note Date & Type Note Facility 06-21-2025 Radiology Diagnostic study note [facility] Imaging Services [address] [place] [address] Orbits for Foreign Body MR#: [id number] Acct: [id number] Name: REBEKAH VARGAS Rep #: [id number] : 1965 M 60 From: Lana Luther MD PCP: DELMA Carrasquillo Status: REG CL I Study:Orbits for Foreign Body Date of Exam: 06/21/25 Exam# [id number] Ordering Dr: Adam Pond MD PROCEDURE: ORBITS FOR FOREIGN BODY 06/21/2025 REASON FOR EXAM: MRI CLEARANCE TECHNIQUE: Procedure Code: RADORBFB2. Modality: DX Procedure: ORBITS FOR FOREIGN BODY COMPARISON: None FINDINGS: Bones: Metal artifact from dentures and dental amalgam. No worrisome radiopaqueforeign body. Sinuses: Limited but grossly clear. Additional findings: No gross, depressed fracture. RAD/Orbits for Foreign Body IMPRESSION: No worrisome radiopaque foreign body. Reading Location: [facility] CC: DELMA Mederos; Dr. Adam Pond MD ~ Jukebox Route Driver: Uz[facility] 06-11-2025 Hospital Discharge instructions Patient Education 06/10/2025 22:18:41 Migraines and [...] out of the light. Wear dark glasses, returns supervisor lights, and close the curtains. When outdoors, wear a brimmed hat. Drink lots of fluids. Sip caffeine-free flat soda to help relieve nausea. See your doctor if you get migraines or cluster headaches often. There are effective medicines to help treat or prevent them. Hormone therapy. This may help women whose migraines are related to hormonal changes during menstruation. [id number] [employer]. [address] [place] [address]. All rights reserved. This information is not intended as a substitute for professional medical care. Always follow your healthcare professional's instructions. Follow Up Care 06/10/2025 19:58:30 With:SCOTT ORELLANA Address: [address] [place] [phone] When:2-4 days [facility] 06-10-2025 Note Discharge Instructions Thank you for allowing [facility] to assist you with your healthcare needs. The following is important discharge information regarding your hospital visit. Diagnosis from Today's Visit Numbness What to Do Next Instructions from Your Care Team No qualifying data available. Post Acute Orders No qualifying data available. You Need to Schedule the Following Appointments Follow Up with SCOTT ORELLANA When:Within 2-4 days Where:[address] [place] [phone] Allergies penicillins SOB Medications Please ask your [...] out of the light. Wear dark glasses, returns supervisor lights, and close the curtains. When outdoors, wear a brimmed hat. Drink lots of fluids. Sip caffeine-free flat soda to help relieve nausea. See your doctor if you get migraines or cluster headaches often. There are effective medicines to help treat or prevent them. Hormone therapy. This may help women whose migraines are related to hormonal changes during menstruation. [phone] [employer]. [address] [place] [address], [place] [address]. All rights reserved. This information is not intended as a substitute for professional medical care. Always follow your healthcare professional's instructions. Additional Information VACCINATE! IT SAVES LIVES! Members of the community who have not yet received the COVID-19 vaccine and would like to receive it can visit one of [facility] vaccine clinics. There are many vaccine clinic locations within the [facility]. For locations and available times, please visit [email or web address] It is important to note that some COVID mobile vaccine clinics are held outdoors and may be canceled in rainy or stormy conditions. To learn more about pediatric vaccinations (ages 5-11), we invite you to visit the [facility] webpage. [email or web address] To learn more about the COVID-19 vaccine, we invite you to visit the CDC website for a list of frequently asked questions. https://www.cdc.gov/coronavirus/2 019-ncov/vaccines/faq.html [facility] Patient Portal Access Instructions: Stay connected with your healthcare team and access your personal medical information anytime with the [facility] Patient Portal. If you would like a full copy of your medical records please contact the [facility] Medical Records Department Thursday through Thursday between 8a.m. and 4:30p.m. Please follow the directions below to access the portal: 1.Access the email account you provided upon registration to the hospital.2.Look for an invitation email from [facility].3.Open the email and access the invitation link: Accept Invitation to [facility]4.Fill in the required parks to create your account. Sign into [email or web address] with your username and password that you [...] you will allow to register on the [facility] Patient Portal for access to your information. You can also access the [facility] Patient Portal on the ArriveBefore pramod. Simply click on Health Records under Health Data and then click on the Rm logo. HOW TO SAFELY DISPOSE OF PRESCRIPTION [...] Call your local pharmacy or go to http://bit.ly/2J1Uq7m to find one close to you.3.Make use of household items: Use cat litter or old coffee grounds to dispose medications if other options are not available. Mix your drugs with these household products, seal them in an airtight container and throw it into the garbage. Call [facility]: [phone] to be sure your drugs can be [...] been reviewed and explained to me and I,REBEKAH VARGAS understand my current condition and have read and understand these discharge instructions. I have received a written copy of the plan/instructions. If I have questions, I am aware that I should contact my doctor. Patient/Full Roll Inspector Signature: Date/Time: Relationship to Patient: ____ Witness Name/Signature: Date/Time: [facility] 06-10-2025 Note Exam Date Time Procedure Performing Provider Status 06/10/25 9:[address] Head or Brain w/o Contrast WNISOME CORNELIUS MD; Auth (Verified) [id number] ORIGINAL EXAMINATION: CT OF THE HEAD WITHOUT [...] Date: 06/10/2025 9:24:33 PM Ordering Provider: TONE CORDOBA [facility]08-30-2025 Note* Exam Date Time Procedure Performing Provider Status 06/10/25 8:59 PM XR Chest 1 View MARIO LOW MD; [facility] (Verified) [id number] ORIGINAL EXAMINATION: ONE XRAY VIEW OF THE [...] 06/10/2025 10:17:12 PM Ordering Provider: TONE CORDOBA [facility]08-30-2025 Note* Exam Date Time Procedure Performing Provider Status 06/10/25 8:20 PM EKG [ED AOH] - CV TONE CORDOBA MD; Auth (Verified) ECG Final Report Sinus rhythm Electronic Signature: TONE CORDOBA MD 06/10/2025 20:30:10 [facility]06-13-2025 Note* Exam Date Time Procedure Performing Provider Status 03/24/25 4:49 PM XR Spine Cervical 2 or 3 Views Rowena PALAFOX DO; Auth (Verified) [id number] ORIGINAL EXAMINATION: 4 XRAY VIEWS OF THE [...] Sign Date: 03/24/2025 4:53:21 PM Ordering Provider: PATRICIA MEDEROS [facility]06-12-2025 Evaluation + Plan note Future Scheduled Tests Radiology* XR Spine Cervical AP/LAT 03/23/25 [facility] Evaluation noteNo assessment information available [facility] Work Phone: Hospital course Narrative No data available for this section [facility] Discharge instructions No data available for this section [facility] Progress note No data available for this section [facility] Reason for referral (narrative)No reason for referral information [facility] Work Phone: Summary Purpose Family History No Family History Records Found No data available for this section No data available for this section No Family History Records FoundNo Family History Records Found Advance Directives No Advanced Directives Records FoundNo Advanced Directives Records FoundNo Advanced Directives Records Found Chief Complaint and Reason for Visit Chief Complaint Admit Date TIA June 21, 2025 1:21pm Additional Source Comments (unrecognized sect ion and content) No Status Records FoundNo Status Records FoundNo Status Records Found INFORMATION SOURCE (unrecogn ized section and content) DATE CREATED AUTHOR 03/26/2020 [facility] ([place]) DATE CREATED AUTHOR AUTHOR'S ORGANIZ ATION 06/19/2025 [facility] DATE CREATED AUTHOR AUTHOR'S ORGANIZ ATION 07/15/2025 [facility] Patient Care team informatio n (unrecognized section and content) Team Status: Active Member Role/Relationship Status Dates Patricia Mederos NP, CLIENT MANAGER [employer] Primary care physician Active Team Status: Inactive Member Role/Relationship Status Dates Dr. Adam Pond MD Attending physician Active Start: June 21, 2025 End: June 21, 2025 Dr. Adam Pond MD Referring Provider Active Start: June 21, 2025 End: June 21, 2025 Patricia Mederos NP, CLIENT MANAGER [employer] Primary care physician Active Start: June 21, 2025 End: June 21, 2025 Goals (unrecognized section and content) Goals may be documented in a n alternate section FOR RECORDS PERTAINING TO PATIENTS WHO ARE [...] BE BASED ON THE PRIMARY CLINICAL RECORDS. [employer] [facility]. provides no warranty or guarantee of the accuracy or completeness of information in this document.
== END | disposition home or self-care (01) ==
LOC: CVS 13:02
PROVIDERS: PCP Nurse Practitioner Family; Referring Provider Psychiatry & Neurology Sleep Medicine; Visit Provider Psychiatry & Neurology Sleep Medicine
DX: G45.9 Transient cerebral ischemic attack, unspecified (principal)
CPT/HCPCS: 93306

== ENCOUNTER 2025-09-17 19:43 | Emergency (ER) | payer BC, SELFPAY ==
[2025-09-17 19:44] VITALS: BP 138/90; PULSE 69; RESP 16; TEMP 36.6; O2SAT 95; BMI 25.5
--- NOTE | 2025-09-17 20:13 | EDS_ITS ---
HPI History of Present Illness Chief Complaint: Nosebleed Detail of Chief Complaint: Nosebleed Informant: patient Narrative Narrative: Patient presents with nosebleed this around 7 PM. Patient states he blew his nose and he started to bleed. He is on Plavix for prior history of TIA. He has been drinking alcohol tonight. He denies any trauma to his nose or face. Has had nosebleeds in the past. [facility] Medical History (Updated 09/17/25 @ 22:[address] Maribel Love, DO) TIA (transient ischemic attack) Home Medications ?Medication ?Instructions ?Recorded ?Last Taken ?Type clopidogrel 75 mg tablet 75 mg PO DAILY 09/17/25 Unkn own History Allergy/AdvReac Type Severity Reaction Status Date / Time Penicillins Allergy Severe Anaphylaxis Verified 09/17/25 19:48 Social History Smoking Status: Former smoker ROS ROS ED Review of Systems ROS Unobtainable: other Constitutional Constitutional ED: Reports lethargy; Denies chills, fever(s), sweats or weight loss Eyes Eyes: Denies blurry vision, change in vision or diplopia ENT ENT ED: Reports other Details: Nosebleed ; Denies rhinorrhea or sore throat Cardiovascular Cardiovascular: Denies chest pain, orthopnea or racing heartbeat Respiratory/Chest Respiratory/Chest: Denies cough, dyspnea, dyspnea on exertion, orthopnea or sputum Gastrointestinal Gastrointestinal: Denies abdominal pain, diarrhea, nausea or vomiting Genitourinary Genitourinary ED: Denies dysuria, hematuria or urinary frequency Musculoskeletal Musculoskeletal: Denies arthralgias, back pain, myalgias or neck pain Integumentary Denies abscess, Abrasions or rash Neurologic Neurologic: Denies headache(s) or weakness Psychiatric Psychiatric: Denies anxiety, depression or suicidal thoughts Endocrine Endocrinology: Denies polydipsia, polyphagia or polyuria Hematologic/Lymphatic Hematologic/Lymphatic: Denies easy bleeding, easy bruising or lymphadenopathy Allergic/Immunologic Allergic/Immunologic ED: Denies mouth swelling, tongue swelling or urticaria EXAM Physical Exam Const Vital Signs: 09/17/25 19:44 09/17/25 20:44 09/17/25 21:30 Temperature 97.8 F 97.5 F L Temperature Source Temporal Oral Pulse Rate 69 61 74 Respiratory Rate 16 16 Blood Pressure 138/90 H 115/72 116/70 Blood Pressure Mean 106 86 85 Pulse Ox 95 98 Oxygen Delivery Method Room Air Room Air Positive well nourished and well developed General Appearance ED: well developed and NAD HEENT Reports TM's clear and moist mucous membranes HEENT Narrative: Evaluation of the right side of the nose does reveal some dried blood within the nasal vault. Do not appreciate any active bleeding currently. Evaluation of the oropharynx reveals no blood going down the oropharynx. normocephalic and atraumatic; Negative for trauma or tenderness Tympanic Membrane ED: Yes TM's clear Eyes PERRL and EOMs intact bilaterally General Eye ED: Negative for pale conjunctiva or scleral icterus Neck no lymphadenopathy, supple and no JVD General: Negative for tenderness Chest Wall inspection of chest normal and palpation of chest normal Chest: Negative for tenderness Resp normal respiratory effort and clear to auscultation bilaterally Effort and Inspection: Negative for respiratory distress or pain with movement Auscultation: Negative for rhonchi, wheezes or diminished lung sounds Cardio regular rate, regular rhythm, S1 normal heart sound, S2 normal heart sound and no murmurs Peripheral Pulses: pulses 2+ throughout GI normal to inspection, nondistended, normoactive bowel sounds, soft to palpation, non-tender, non-distended and no masses Back/Spine no CVA tenderness and no thoracic nor lumbar tenderness Extremity normal to inspection General Extremety ED: Negative for edema General Extremity: Negative for edema Neuro oriented x3, CN's II-XII intact bilaterally, no sensory deficits noted and gait normal Sensorium / Orientation: awake, alert, oriented to person, oriented to place and oriented to time Motor Exam: strength 5/5 throughout and strength abnormal Psych mental status grossly normal Skin no rashes or lesions noted and no wounds MDM MDM MDM Narrative Medical decision making narrative: Patient presents with nosebleed from the right side of his nose. I placed a cottonball with Rose solution into the right nasal vault and applied a nasal clip. Will reevaluate in 20 minutes. After removing the packing with another solution there was no further bleeding noted. Difficult to ascertain the source of the bleeding on exam. He was observed in the emergency department for several hours. Patient asked me to check his GFR and liver enzymes. I did obtain a CBC with differential that was essentially normal and obtained a CMP that was essentially normal with a normal GFR of 101. This point he will be discharged to home. He will be referred to ENT if he has persistent nosebleeds. Patient advised that if his nose should bleed again hold constant pressure for 20 minutes and return to the ER if it does not stop bleeding. Lab Data Attestation: I reviewed the patient's lab results. Labs: Laboratory Results - last 24 hr 09/17/25 21:20 WBC 7.6 RBC 4.46 L Hgb 13.7 Hct 39.9 L MCV 89.5 MCH 30.7 MCHC 34.3 RDW Std Deviation 38.5 RDW Coeff of Rima 11.8 Plt Count 53 L MPV 11.9 Immature Gran % (Auto) 0.100 Neut % (Auto) 45.7 L Lymph % (Auto) 43.3 H [place] % (Auto) 7.9 Eos % (Auto) 2.5 Baso % (Auto) 0.5 Absolute Neuts (auto) 3.5 Absolute Lymphs (auto) 3.27 Nucleated RBC % 0 Sodium 145 Potassium 4.1 Chloride 108 Carbon Dioxide 23.5 Anion Gap 13 BUN 22 H Creatinine 0.79 Estim Creat Clear Calc 104.58 Est GFR (MDRD) Non-Af 101 BUN/Creatinine Ratio 27.6 H Glucose 88 Calcium 9.2 Total Bilirubin 0.21 AST 22 ALT 23 Alkaline Phosphatase 41 Total Protein 6.7 Albumin 4.3 Globulin 2.4 Albumin/Globulin Ratio 1.8 Discharge Plan Triage Chief Complaint: Nosebleed ED Provider: Maribel Love Dx/Rx/DC Orders Clinical Impression: Epistaxis Instructions: ED Epistaxis (Adult) Prescriptions: No Action clopidogrel 75 mg tablet 75 mg PO DAILY Primary Care Provider: Patricia Mederos NP Referrals: Javier Rose MD [Med Staff - Active Staff, Ear Nose Throat (ENT)] - 3-5 Days Patricia Mederos NP, SMOKED MEAT PREPARER-C [Primary Care Provider, Family Practice] Print Language: Maltese Disposition Disposition: Home, Self Care
--- OUTSIDE RECORDS SUMMARY | 2025-09-17 20:18 | XMS RPT_ITS | CCD ---
Author Organization [facility] Care Team Providers Care Online Activist Name Role Phone REYNA KENNEL KEEPER-SCUBA INSTRUCTOR, SCOTT Primary Care Physician [phone] Salty RENEE, Dr. Medina Attending Physician Salty RENEE, Dr. Medina Referring Provider Gatito CHARLTON-C, Patricia Primary Care Physician [phone] REYNA KENNEL KEEPER-SCUBA INSTRUCTOR, SCOTT Primary Care Unavailmarine LAN MD, DR FRANK Attending Unavailabl e BALTES KENNEL KEEPER-SCUBA INSTRUCTOR, [place] Primary Care Unavailabl e BALTES KENNEL KEEPER-SCUBA INSTRUCTOR, SCOTT Attending Unavailabl e BALTES KENNEL KEEPER-SCUBA INSTRUCTOR, [place] Primary Care Unavailabl e MEDEROS KENNEL KEEPER-SCUBA INSTRUCTOR, PATRICIA Anne Attending Unavai lable BALTES KENNEL KEEPER-SCUBA INSTRUCTOR, SCOTT Attending Unavailabl e BALTES KENNEL KEEPER-SCUBA INSTRUCTOR, [place] Primary Care Unavailabl e BERYL RENEE, TONE Willard Attending Unavail able BALTES KENNEL KEEPER-SCUBA INSTRUCTOR, [facility] Care Unavailabl e Anam Magallon Attending Unavailable Gatito BEEF SELECTOR, [facility] Unavailable StalkerAdam Attending Unavailable Gatito BEEF SELECTOR, [facility] Unavailable StalkerAdam Referring Unavailable StalkerAdam Referring Unavailable StalkAdam emmanuel Attending Unavailable Gatito CHARLTON, [facility] Unavailable Naun RENEE, Dr. Mendieta Attending Physician [phone] Allergies Allergy Classification Reported Allergen(s) Allergy Type Date of Onset Reaction(s) Facility (1 source) Penicillins; Translations: [penicillins] Drug allergy SOB [facility] (2 sources) Penicillin; Translations: [penicillins] Drug Allergy SOB [facility] Medications Current Medications Medication Drug Class(es) Dates Sig (Normalized) Sig (Original) Ascorbic Acid (3 sources) Vitamin C Start: 12-23-2024 take 1 [...] Date: 12/23/24 Status: Ordered Repeat number: 1 aspirin 81 mg delayed release oral tablet (1 source) Platelet Aggregation Inhibitor, Nonsteroidal Anti-inflammatory Drug Start: 06-13-2025 aspirin 81 mg oral delayed release tablet Dose : 81 mg = 1 tab(s), Oral, Daily, 0 Refill(s) Start Date: 06/13/25 Status: Ordered Medication Dispense Status: Completed Total Allowed Fills: 1 Fills Dispensed: 0 clopidogrel 75 mg oral tablet (1 source) P2Y12 Platelet Inhibitor Start: 07-18-2025 clopidogrel 75 mg oral tablet Dose : 75 mg = 1 tab(s), Oral, qDay, # 30 tab(s), 0 Refill(s) Start Date: 07/18/25 Status: Ordered Medication Dispense Status: Completed Quantity: 30.0 Unit: tab(s) Total Allowed Fills: 1 Fills Dispensed: 0 ferrous sulfate 325 mg oral tablet (1 source) Start: 07-18-2025 IRON (ferrous sulfate 325 mg) 65 mg oral tablet Dose : 325 mg = 1 tab(s), Oral, qDay, Take with food. Unsurem of mg., 3 Refill(s) Start Date: 07/18/25 Status: Ordered Medication Dispense Status: Completed Total Allowed Fills: 1 Fills Dispensed: 0 MAGNESIUM GLUCONATE (3 sources) Start: 12-23-2024 take 1 tablet by [...] 12/23/24 Status: Ordered Repeat number: 1 Niacin (3 sources) Nicotinic Acid Start: 12-23-2024 take 1 [...] Date: 12/23/24 Status: Ordered Repeat number: 1 rosuvastatin calcium 20 mg oral tablet (1 source) HMG-CoA Reductase Inhibitor Start: 07-18-2025 rosuvastatin 20 mg oral tablet Dose : 20 mg = 1 tab(s), Oral, Daily, # 100 tab(s), 3 Refill(s), Pharmacy: [address], TIA (transient ischemic attack), 177.8, cm, 07/18/25 8:08:00 EDT, Height, kg, 07/18/25 8:04:00 EDT, Dosing Weight Start Date: 07/18/25 Status: Ordered Medication Dispense Status: Completed Quantity: 100.0 Unit: tab(s) Total Allowed Fills: 4 Fills Dispensed: 0 Indications: Transient cerebral ischemic attack, unspecified; Vitamin A (3 sources) Vitamin A Start: 12-23-2024 take 1 [...] Date: 12/23/24 Status: Ordered Repeat number: 1 vitamin B12 (1 source) Vitamin B12 Start: 07-18-2025 take 1 tablet by mouth once daily Vitamin B12 1 tab(s), Oral, qDay, unsure of mg, 0 Refill(s) Start Date: 07/18/25 Status: Ordered Medication Dispense Status: Completed Total Allowed Fills: 1 Fills Dispensed: 0 Vitamin D3 (3 sources) Start: 12-23-2024 take 1 tablet by mouth once daily Vitamin D3 1 tab(s), Oral, Daily, unsure of mg, 0 Refill(s) Start Date: 12/23/24 Status: Ordered Medication Dispense Status: Completed Total Allowed Fills: 1 Fills Dispensed: 0 Start: 12-23-2024 take 1 tablet by hermann th once daily Vitamin D3 1 tab(s), Oral, Daily, unsure of mg, 0 Refill(s) Start Date: 12/23/24 Status: Ordered Repeat number: 1 Zinc (1 source) Start: 07-18-2025 take 1 tablet by hermann th once daily Zinc 1 tab(s), Oral, Daily, unsure of mg, 0 Refill(s) Start Date: 07/18/25 Status: Ordered Medication Dispense Status: Completed Total Allowed Fills: 1 Fills Dispensed: 0 Problems Problem Classification Problem Date Documented Da te Episodic/Chronic Chronic obstructive pulmonary disease and bronchiectasis (3 sources) Bronchitis 09-08-2022 Episodic Malaise and fatigue (2 sources) Weakness; Translations: [Weakness] Onset: 07-18-2025 Episodic Other connective tissue disease (2 sources) Other specified soft tissue disorders; Translations: [Other specified soft tissue disorders] Onset: 07-18-2025 Episodic Other nervous system disorders (1 source) Anesthesia of skin; Translations: [Anesthesia of skin] Onset: 06-10-2025 Episodic Other nervous system disorders (1 source) Anesthesia of skin; Translations: [Anesthesia of skin] Onset: 06-10-2025 Episodic Other screening for suspected conditions (not mental disorders or infectious disease) (1 source) Suspected respiratory disease 07-18-2025 Episodic Paralysis (1 source) Left hemiparesis 07-18-2025 Chronic Residual codes; unclassified (1 source) Memory impairment 07-18-2025 Episodic Residual codes; unclassified (2 sources) Other amnesia; Translations: [Other amnesia] Onset: 07-18-2025 Episodic Transient cerebral ischemia (4 sources) Transient cerebral ischemia; Translations: [Transient cerebral ischemic attack, unspecified] Onset: 07-18-2025 07-18-2025 Chronic Unclassified (3 sources) Patient encounter status 12-23-2024 Results Test Name Value Interpretation Reference Range Facility LABORATORYOrdered By: Mini Wray on 07-18-2025 Cholesterol [Mass/Vol] 197 mg/dL Normal 0 - 200 mg/dL AO ADM SS Comment on above: Interpretive Data: C holesterol Reference Interval: Less than 200 Desirable 200-239 Borderline high risk 240 and above High risk Cholesterol in HDL [Mass/Vol] 60 mg/dL Normal 40 - 60 mg/dL AO ADM SS Cholesterol in LDL [Mass/Vol] 127 mg/dL Normal 0 - 130 mg/dL AO ADM SS Triglyceride [Mass/Vol] 49 mg/dL Normal 0 - 150 mg/dL AO ADM SS Comment on above: Interpretive Data: T riglyceride Reference Interval: Less than 150 Normal 150-199 Borderline high risk 200-499 High risk 500 or higher Very high risk LIPIDon 07-18-2025 Cholesterol [Mass/Vol] 197 mg/dL Normal 0-200 [facility] Comment on above: Result Comment: Chol esterol Reference Interval: Less than 200 Desirable 200-239 Borderline high risk 240 and above High risk Performed By: #### L IPID #### [address] [address] Cholesterol in HDL [Mass/Vol] 60 mg/dL Normal 40-60 [facility] Comment on above: Performed By: #### L IPID #### [address] [address] Cholesterol in LDL [Mass/Vol] 127 mg/dL Normal 0-130 [facility] Comment on above: Performed By: #### L IPID #### [address] [address] Triglyceride [Mass/Vol] 49 mg/dL Normal 0-150 [facility] Comment on above: Result Comment: Trig lyceride Reference Interval: Less than 150 Normal 150-199 Borderline high risk 200-499 High risk 500 or higher Very high risk Performed By: #### L IPID #### [address] [place], [place] [address] Echo Completeon 07-17-2025 Echo Complete [facility] [address] [address] Echo Complete 07/17/25 1304 MR#: [id number] Acct: [id number] Name: REBEKAH VARGAS Rep #: [id number] : 1965 60 From: Anam Magallon MD Attending Dr: Dr. Adam Pond MD Status: RE G CLI Ordering Dr: Adam Pond MD Date: 07/17/25 Location: CVS Sex: M C Admitted: Reason For Study Reason For Study: TIA Procedure This was a 2D Doppler, Color Flow transthoracic echocardiogram. Exam performed in department. Left Ventricle Normal LV size. The left ventricular ejection fraction is 55 %. No regional wall motion abnormalities noted. Right Ventricle Normal RV size. Normal systolic function. Atria Normal left atrium. Normal right atrium. Bubble contrast study negative for right to left interatrial shunt. Mitral Valve Normal mitral valve. Tricuspid Valve Normal tricuspid valve. Aortic Valve Normal aortic valve. Trisinus/trileaflet aortic valve. Pulmonic Valve Normal pulmonic valve. Great Vessels Normal aortic root. The pulmonary artery is normal size. Inferior vena cava collapse with respiration. Pericardium/Pleural No pericardial effusion. MMode/2D Measurements Calculations LVIDd: 5.0 cm IVSd: 1.2 cm LVOT diam: 2.1 cm LVIDs: 3.6 cm LVPWd: 0.99 cm LVOT area: 3.4 cm2 RVDd: 3.9 cm FS: 28.8 % LAV(MOD-bp): 73.2 ml LVAd ap4: 32.2 cm2 SV(MOD-sp4): 55.5 ml LAV(MOD-bp) Indexed: 36.6 ml/m2 LVLd ap4: 8.2 cm SI(MOD-sp4): 27.7 ml/m2 LAV(MOD-sp2): 59.0 ml EDV(MOD-sp4): 104.7 ml LAV(MOD-sp4): 72.9 ml EDV(sp4-el): 106.9 ml LVAs ap4: 20.1 cm2 LVLs ap4: 6.8 cm ESV(MOD-sp4): 49.2 ml ESV(sp4-el): 50.1 ml EF(MOD-sp4): 53.0 % EF(sp4-el): 53.1 % SV(sp4-el): 56.8 ml LA A4 area: 24.4 cm2 LA dimension(2D): 3.9 cm RA A4 area: 18.1 cm2 Time Measurements MV dec time: 0.22 sec Doppler Measurements Calculations MV E max ellis: 69.2 cm/sec Lat Peak E' Ellis: 14.3 cm/sec Med Peak E' Ellis: 9.8 cm/sec MV A max ellis: 54.9 cm/sec E/E' lat: 4.8 E/E' med: 7.1 MV E/A: 1.3 MV V2 max: 91.9 cm/sec Ao V2 max: 109.1 cm/sec MV max P.4 mmHg MV dec slope: 317.8 cm/sec2 Ao max P.8 mmHg MV V2 mean: 43.8 cm/sec Ao V2 mean: 76.1 cm/sec MV mean P.0 mmHg Ao mean P.6 mmHg MV V2 VTI: 36.8 cm Ao V2 VTI: 29.4 cm AV (velocity ratio): 0.82 MVA(VTI): 2.2 cm2 INNA(I,D): 2.8 cm2 INNA(V,D): 3.0 cm2 LV V1 max: 97.6 cm/sec SV(LVOT): 81.0 ml PA V2 max: 92.5 cm/sec LV V1 max P.8 mmHg PA V2 mean: 66.5 cm/sec LV V1 mean P.0 mmHg LV V1 mean: 66.3 cm/sec LV V1 VTI: 24.1 cm ECHO/Echo Complete Interpretation Summary Normal LV size. The left ventricular ejection fraction is 55 %. Bubble contrast study negative for right to left interatrial shunt. Ordering Physician: Adam Pond Referring Physician: Adam Pond Performed By: Sarah Beth Berrios RCS 07/17/251628 Date Anam Magallon MD CC: DELMA Mederos; Dr. Adam Pond MD Date Dictated: 07/17/251303 Date Transcribed: 07/17/251628 Library Aide: Signed Normal [facility] Echocardiogram study reportO rdered By: Anam Magallon on 07-17-2025 Study report [facility] [address] [place] [address] Echo Complete 07/17/251303 MR#: [id number] Acct: [id number] Name: REBEKAH VARGAS Rep #:[id number] : 1965 60 From: Anam Leung Attending Dr: Dr. Adam Pond MD Status: REG CLI Ordering Dr: Adam Pond MD Date: 07/17/25 Location: [facility] Sex: M C Admitted: Reason For Study Reason For Study: TIA Procedure This was a 2D Doppler, Color Flow transthoracic echocardiogram. Exam performed in department. Left Ventricle Normal LV size. The left ventricular ejection fraction is 55 %. No regional wallmotion abnormalities noted. Right Ventricle Normal RV size. Normal systolic function. Atria Normal left atrium. Normal right atrium. Bubble contrast study negative for right to left interatrial shunt. Mitral Valve Normal mitral valve. Tricuspid Valve Normal tricuspid valve. Aortic Valve Normal aortic valve. Trisinus/trileaflet aortic valve. Pulmonic Valve Normal pulmonic valve. Great Vessels Normal aortic root. The pulmonary artery is normal size. Inferior vena cava collapse with respiration. Pericardium/Pleural No pericardial effusion. MMode/2D Measurements & Calculations LVIDd: 5.0 cm IVSd: 1.2 cm LVOT diam: 2.1 cm LVIDs: 3.6 cm LVPWd: 0.99 cm LVOT area: 3.4 cm2 RVDd: 3.9 cm FS: 28.8 % LAV(MOD-bp): 73.2 ml LVAd ap4: 32.2 cm2 SV(MOD-sp4): 55.5 ml LAV(MOD-bp) Indexed: 36.6 ml/m2 LVLd ap4: 8.2 cm SI(MOD-sp4): 27.7 ml/m2 LAV(MOD-sp2): 59.0 ml EDV(MOD-sp4): 104.7 ml LAV(MOD-sp4): 72.9 ml EDV(sp4-el): 106.9 ml LVAs ap4: 20.1 cm2 LVLs ap4: 6.8 cm ESV(MOD-sp4): 49.2 ml ESV(sp4-el): 50.1 ml EF(MOD-sp4): 53.0 % EF(sp4-el): 53.1 % SV(sp4-el): 56.8 ml LA A4 area: 24.4 cm2 LA dimension(2D): 3.9 cm RA A4 area: 18.1 cm2 Time Measurements MV dec time: 0.22 sec Doppler Measurements & Calculations MV E max ellis: 69.2 cm/sec Lat Peak E' Ellis: 14.3 cm/sec Med Peak E' Ellis: 9.8 cm/sec MV A max ellis: 54.9 cm/sec E/E' lat: 4.8 E/E' med: 7.1 MV E/A: 1.3 MV V2 max: 91.9 cm/sec Ao V2 max: 109.1 cm/sec MV max P.4 mmHg MV dec slope: 317.8 cm/sec2 Ao max P.8 mmHg MV V2 mean: 43.8 cm/sec Ao V2 mean: 76.1 cm/sec MV mean P.0 mmHg Ao mean P.6 mmHg MV V2 VTI: 36.8 cm Ao V2 VTI: 29.4 cm AV (velocity ratio): 0.82 MVA(VTI): 2.2 cm2 INNA(I,D): 2.8 cm2 INNA(V,D): 3.0 cm2 LV V1 max: 97.6 cm/sec SV(LVOT): 81.0 ml PA V2 max: 92.5 cm/sec LV V1 max P.8 mmHg PA V2 mean: 66.5 cm/sec LV V1 mean P.0 mmHg LV V1 mean: 66.3 cm/sec LV V1 VTI: 24.1 cm ECHO/Echo Complete Interpretation Summary Normal LV size. The left ventricular ejection fraction is 55 %. Bubble contrast study negative for right to left interatrial shunt. Ordering Physician: Adam Pond Referring Physician: Adam Pond Performed By: Sarah Beth Berrios RCS 07/17/25 1629 Date _ Anam Magallon MD CC: BEEF SELECTOR-C Patricia Mederos; Dr. Adam Pond MD ~ Date Dictated: 07/17/25 1304 Date Transcribed: 07/17/25 162 Library Aide: Signed [facility] Work Phone: Brain W/WO Contraston 2024 Brain W/WO Contrast [facility] Imaging Services [address] [place] [address] Brain W/WO Contrast MR#: [id number] Acct: [id number] Name: REBEKAH VARGAS Rep #: [id number] : 1965 M 60 From: Abdiel Lopez MD PCP: DELMA Carrasquillo Status: REG CLI Study: Brain W/WO Contrast Date of Exam: 06/21/25 Exam# [id number] Ordering Dr: Adam Pond MD PROCEDURE: BRAIN [...] demyelinating process is less likely. [facility] CC: DELMA Mederos; Dr. Adam Pond MD Library Aide: Signed Normal [facility] Magnetic resonance imaging r eportOrdered By: Abdiel Lopez on 06-21-2025 Study report [facility] Imaging Services [address] [place] [address] Brain W/WO Contrast MR#: [id number] Acct: [id number] Name: REBEKAH VARGAS Rep #: [id number] : 1965 M 60 From: Jeramie Lopez MD PCP: DELMA Carrasquillo Status: REG CL I Study:Brain W/WO Contrast Date of Exam: 06/21/25 Exam# [id number] Ordering Dr: Adam Pond MD PROCEDURE: BRAIN [...] demyelinating process is less likely. Reading Location: [facility] CC: BEEF SELECTOR-C Patricia Mederos; Dr. Adam Pond MD ~ Library Aide: Signed [facility] Orbits for Foreign Bodyon Orbits for Foreign Body [facility] Imaging Services [address] [place], [place] [id number] Orbits for Foreign Body MR#: [id number] Acct: [id number] Name: REBEKAH VARGAS Rep #: [id number] : 1965 M 60 From: Reji Luther MD PCP: DELMA Carrasquillo Status: REG CLI Study: Orbits for Foreign Body Date of Exam: 06/21/25 Exam# [id number] Ordering Dr: Adam Pond MD PROCEDURE: ORBITS [...] No worrisome radiopaque foreign body. Reading Location: [facility] CC: BEEF SELECTOR-C Patricia Mederos; Dr. Adam Pond MD Library Aide: Signed Normal [facility] .Auto Diffon 06-10-2025 Basophil, Absolute 0.0 10 3/mcL Normal 0.0-0.3 [facility] Comment on above: Performed By: #### G FR, PRO, APTT, MDW, ANEU, ADIFF, CBC, TROPHS, BMP #### [address] [address] Basophils/100 WBC (Bld) 0.3 % Normal 0.0-2.5 [facility] Comment on above: Performed By: #### G FR, PRO, APTT, MDW, ANEU, ADIFF, CBC, TROPHS, BMP #### [address] [address] Eosinophil, Absolute 0.2 10 3/mcL Normal 0.0-0.7 [facility] Comment on above: Performed By: #### G FR, PRO, APTT, MDW, ANEU, ADIFF, CBC, TROPHS, BMP #### [address] [address] Eosinophils/100 WBC (Bld) 2.0 % Normal 0.0-6.0 [facility] Comment on above: Performed By: #### G FR, PRO, APTT, MDW, ANEU, ADIFF, CBC, TROPHS, BMP #### [address] [address] Lymphocyte, Absolute 2.8 10 3/mcL Normal 0.9-4.3 [facility] Comment on above: Performed By: #### G FR, PRO, APTT, MDW, ANEU, ADIFF, CBC, TROPHS, BMP #### [address] [address] Lymphocytes/100 WBC (Bld) 32.8 % Normal 20.0-40.0 [facility] Comment on above: Performed By: #### G FR, PRO, APTT, MDW, ANEU, ADIFF, CBC, TROPHS, BMP #### [address] [address] Monocyte, Absolute 0.6 10 3/mcL Normal 0.1-1.4 [facility] Comment on above: Performed By: #### G FR, PRO, APTT, MDW, ANEU, ADIFF, CBC, TROPHS, BMP #### [address] [address] Monocytes/100 WBC (Bld) 7.6 % Normal 2.0-13.0 [facility] Comment on above: Performed By: #### G FR, PRO, APTT, MDW, ANEU, ADIFF, CBC, TROPHS, BMP #### [address] [place], [place] [address] Neutrophils/100 WBC (Bld) 57.3 % Normal 50.0-75.0 [facility] Comment on above: Performed By: #### G FR, PRO, APTT, MDW, ANEU, ADIFF, CBC, TROPHS, BMP #### [address] [place], [place] [address] .GFRon 06-10-2025 Estimated Glomerular Filtration Rate 100 ml/min/1.73sqm Normal [facility] Comment on above: Result Comment: Stages [...] calculate the eGFR results. Performed By: #### G FR, PRO, APTT, MDW, ANEU, ADIFF, CBC, TROPHS, BMP ####[address] [place], [place] [address] .MDWon 06-10-2025 Monocyte Distribution Width 16.46 Normal 0.00-20.00 [facility] Comment on above: Result Comment: For ED adult patients suspected of sepsis, MDW<=20.0 does not rule out sepsis or risk of sepsis Performed By: #### G FR, PRO, APTT, MDW, ANEU, ADIFF, CBC, TROPHS, BMP ####[facility] [place], [place] [address] .NEUABSon 06-10-2025 Neutrophil, Absolute 4.8 10 3/mcL Normal 2.3-8.1 [facility] Comment on above: Performed By: #### G FR, PRO, APTT, MDW, ANEU, ADIFF, CBC, TROPHS, BMP #### [address] [place], [place] [address] Amanda 06-10-2025 Ethanol Level 15 mg/dL Normal [facility] Comment on above: Performed By: #### A LC #### [address] [address] APTTon 06-10-2025 aPTT Coag (Bld) [Time] 28.0 s Normal 25.0-35.0 [facility] Comment on above: Result Comment: For Heparin anticoagulation therapy, the recommended therapeutic range is: 55.2-92.5 seconds. Patients on heparin therapy may have an extreme result. Performed By: #### G FR, PRO, APTT, MDW, ANEU, ADIFF, CBC, TROPHS, BMP ####[address] [place], [place] [address] BMPon 06-10-2025 BUN/Creatinine Ratio 20 ratio Normal 7-27 [facility] Comment on above: Performed By: #### G FR, PRO, APTT, MDW, ANEU, ADIFF, CBC, TROPHS, BMP ####[address] [place], [place] [address] Calcium [Mass/Vol] 9.4 mg/dL Normal 8.4-10.2 [facility] Comment on above: Performed By: #### G FR, PRO, APTT, MDW, ANEU, ADIFF, CBC, TROPHS, BMP ####[address] [place], [place] [address] Chloride [Moles/Vol] 104 mmol/L Normal 98-107 [facility] Comment on above: Performed By: #### G FR, PRO, APTT, MDW, ANEU, ADIFF, CBC, TROPHS, BMP ####[address] [place], [place] [address] CO2 [Moles/Vol] 27 mmol/L Normal 23-31 [facility] Comment on above: Performed By: #### G FR, PRO, APTT, MDW, ANEU, ADIFF, CBC, TROPHS, BMP ####[address] [address] Creatinine [Mass/Vol] 0.82 mg/dL Normal 0.67-1.17 [facility] Comment on above: Performed By: #### G FR, PRO, APTT, MDW, ANEU, ADIFF, CBC, TROPHS, BMP ####[address] [address] Electrolyte Balance 7.0 mEq/L Normal 4.0-15.0 [facility] Comment on above: Performed By: #### G FR, PRO, APTT, MDW, ANEU, ADIFF, CBC, TROPHS, BMP ####[address] [place], [place] [address] Glucose [Mass/Vol] 94 mg/dL Normal 80-115 [facility] Comment on above: Performed By: #### G FR, PRO, APTT, MDW, ANEU, ADIFF, CBC, TROPHS, BMP ####[address] [address] Potassium [Moles/Vol] 3.8 mmol/L Normal 3.5-5.1 [facility] Comment on above: Performed By: #### G FR, PRO, APTT, MDW, ANEU, ADIFF, CBC, TROPHS, BMP ####[address] [address] Sodium [Moles/Vol] 138 mmol/L Normal 136-145 [facility] Comment on above: Performed By: #### G FR, PRO, APTT, MDW, ANEU, ADIFF, CBC, TROPHS, BMP ####[address] [address] Urea nitrogen [Mass/Vol] 16 mg/dL Normal 7-18 [facility] Comment on above: Performed By: #### G FR, PRO, APTT, MDW, ANEU, ADIFF, CBC, TROPHS, BMP ####[address] [address] CBCon 06-10-2025 Erythrocyte distribution width (RBC) [Ratio] 12.5 % Normal 11.5-15.5 [facility] Comment on above: Performed By: #### G FR, PRO, APTT, MDW, ANEU, ADIFF, CBC, TROPHS, BMP #### [address] [address] Hematocrit (Bld) [Volume fraction] 45.3 % Normal 40.0-52.0 [facility] Comment on above: Performed By: #### G FR, PRO, APTT, MDW, ANEU, ADIFF, CBC, TROPHS, BMP #### [address] [address] Hgb 15.6 G/dL Normal 13.0-17.5 [facility] Comment on above: Performed By: #### G FR, PRO, APTT, MDW, ANEU, ADIFF, CBC, TROPHS, BMP #### [address] [address] MCH (RBC) [Entitic mass] 31.6 pg Normal 27.0-33.0 [facility] Comment on above: Performed By: #### G FR, PRO, APTT, MDW, ANEU, ADIFF, CBC, TROPHS, BMP #### [address] [address] MCHC 34.4 G/dL Normal 32.0-36.0 [facility] Comment on above: Performed By: #### G FR, PRO, APTT, MDW, ANEU, ADIFF, CBC, TROPHS, BMP #### [id number] MCV (RBC) [Entitic vol] 91.9 fL Normal 81.0-100.0 [facility] Comment on above: Performed By: #### G FR, PRO, APTT, MDW, ANEU, ADIFF, CBC, TROPHS, BMP #### [address] [address] Platelet 68 10 3/mcL Low 150-450 [facility] Comment on above: Performed By: #### G FR, PRO, APTT, MDW, ANEU, ADIFF, CBC, TROPHS, BMP #### [address] [place], [place] [address] Platelet mean volume (Bld) [Entitic vol] 9.6 fL Normal 6.4-10.5 [facility] Comment on above: Performed By: #### G FR, PRO, APTT, MDW, ANEU, ADIFF, CBC, TROPHS, BMP #### [address] [place], [place] [address] RBC 4.93 10 6/mcL Normal 4.50-6.00 [facility] Comment on above: Performed By: #### G FR, PRO, APTT, MDW, ANEU, ADIFF, CBC, TROPHS, BMP #### [address] [address] WBC 8.4 10 3/mcL Normal 4.5-10.8 [facility] Comment on above: Performed By: #### G FR, PRO, APTT, MDW, ANEU, ADIFF, CBC, TROPHS, BMP #### [address] [address] [address] HEAD OR BRAIN W/O CONTRAS Ton [...] 06/10/2025 9:24:33 PM Ordering Provider: TONE Caballero [facility] LABORATORYOrdered By: SYSTEM SYSTEM on 06-10-2025 [...] Comment on above: Interpretive Data: Alexa chaves [employer] (CHEST, 1992, 102:312S-25S) [...] ng/L Male: 0-76 ng/L Testing performed on [employer] using a homogeneous sandwich chemiluminescent immunoassay based on [employer] technology. Urea nitrogen [Mass/Vol] 16 mg/dL Normal 7 - 18 mg/dL AO ADM SS Urea nitrogen/Creatinine [Mass ratio] 20 ratio Normal 7 - 27 ratio AO ADM SS WBC (Bld) [#/Vol] 8.4 103/mcL Normal 4.5 - 10.8 10^3/mcL AO Workflow SS PROon 06-10-2025 PT Coag (PPP) [Time] 11.4 s Normal 9.0-14.4 [facility] Comment on above: Performed By: #### G FR, PRO, APTT, MDW, ANEU, ADIFF, CBC, TROPHS, BMP ####[id number] [place], [place] [address] PT International Ratio 1.0 Normal [facility] Comment on above: Result Comment: [employer] (CHEST, 1992, 102:312S-25S) recommended therapeutic range for oral anticoagulant therapy is: LOW RISK: Prophylaxis of venous thrombosis INR: 2.0-3.0 Treatment of pulmonary embolism 2.0-3.0 Prevention of systemic embolism 2.0-3.0 HIGH RISK: Mechanical prosthetic valves 2.5-3.5 Performed By: #### G FR, PRO, APTT, MDW, ANEU, ADIFF, CBC, TROPHS, BMP ####Todd [address] [place], [place] [address] [facility] 06-10-2025 High Sensitivity Troponin I 5 ng/L Normal 0-76 [facility] Comment on above: Result Comment: High Sensitive Troponin I Reference Ranges: Female: 0-51 ng/L Male: 0-76 ng/L Testing performed on App Press using a homogeneous sandwich chemiluminescent immunoassay based on Sabesim technology. Performed By: #### G FR, PRO, APTT, MDW, ANEU, ADIFF, CBC, TROPHS, BMP ####Todd [address] [place], [place] [address] XR CHEST 1 VIEWon 06-10-2025 XR CHEST [...] 06/10/2025 10:17:12 PM Ordering Provider: TONE CORDOBA [facility] XR SPINE CERVICAL 2 OR 3 EVA [...] 03/24/2025 4:53:21 PM Ordering Provider: PATRICIA MEDEROS [facility] Final Surgical Pathology Rep mary 01-31-2025 Final Surgical Pathology Report . Pathology Reports Accession: Collected Date/Time: Received Date/Time: Pathologist: [id number] 01/30/2025 08:35 EDT 01/30/2025 14:15 EDT JM AYON MD Final Surgical Pathology Report DIAGNOSIS: A. DISTAL SIGMOID COLON, POLYPECTOMY: - HYPERPLASTIC POLYP B. RECTUM, POLYPECTOMY: - TUBULAR ADENOMA CLINICAL INFORMATION: Procedure: COLONOSCOPY WITH POLYPECTOMY Preoperative diagnosis: HISTORY OF COLON POLYPS Postoperative diagnosis: HISTORY OF COLON POLYPS SPECIMEN: A DISTAL SIGMOID POLYP B RECTAL POLYP GROSS DESCRIPTION: All parts labelled with patient name and [id number] A. Received in formalin labeled distal sigmoid polyp are 4 fernandes-pink tissue fragments measuring 0.2 to 0.5 x 0.3 cm. TS-1 B. Received in formalin labeled rectal polyp is 1 fernandes-pink tissue fragment measuring 0.6 x 0.5 cm greatest dimension. TS-1 Kami Infante, Grossing Powder Press Operator/ Dr. Jm Ayon, Pathologist Performed by Kami Infante MICROSCOPIC DESCRIPTION: The microscopic examination is performed, except in the case of Gross Only. Verified by Pathology Report verified by [facility] JM WELLSCLARE Sign out Date: 01/31/2025 14:23 Performing Lab: [facility], [facility] [address] [place] [address] Pathology Dept Disclaimer If ancillary studies were utilized, the following Laboratory Developed Test (LDT) disclaimer will apply: Under CLIA requirements, [facility] Pathology Laboratory is qualified to perform high complexity testing. For all ancillary stains, positive and negative controls stain appropriately. Performance characteristics of immunohistochemical and chromogenic in-situ hybridization tests have been determined by [facility] Pathology Laboratory. These tests are used for clinical purposes, They should not be regarded as investigational or for research. . Normal [facility] CT THORAX SCREENING W/O CONT Ned 01-12-2025 CT THORAX SCREENING W/O CONTRAST ORIGINAL [...] 01/12/2025 8:09:49 AM Ordering Provider: SCOTT Caballero [facility] Final Surgical Pathology Rep [facility] 03-14-2020 Final Surgical Pathology Report . 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 COMMENT: [facility] - D# [id number] CLINICAL INFORMATION: Procedure: COLONOSCOPY WITH POLYPECTOMY Preoperative [...] Electronically Signed by Pathology Report verified by [facility] Electronically signed by CLAUDIO ORTIZ MD Sign out Date: 03/14/2020 14:16 Performing Lab: [facility], [address] [place] [address] ([place]) Comment on above: Performed By: #### S PFR #### [place] [address] .Auto Diffon 02-06-2020 Ammonia (P) [Mass/Vol] 0.60 10 3/mcL Normal 0.15-1.00 [facility] ([place]) Comment on above: Performed By: #### C BC, ADIFF, ANEU, PSA, TSH, LIPID, CMP, GFR #### [address] [address] Basophils (Bld) [#/Vol] 0.00 10 3/mcL Normal 0.00-0.19 [facility] ([place]) Comment on above: Performed By: #### C BC, ADIFF, ANEU, PSA, TSH, LIPID, CMP, GFR #### [address] [address] Basophils/100 WBC (Bld) 0.6 % Normal 0.0-2.5 [facility] ([place]) Comment on above: Performed By: #### C BC, ADIFF, ANEU, PSA, TSH, LIPID, CMP, GFR #### [address] [address] Eosinophils (Bld) [#/Vol] 0.10 10 3/mcL Normal 0.00-0.40 [facility] ([place]) Comment on above: Performed By: #### C BC, ADIFF, ANEU, PSA, TSH, LIPID, CMP, GFR #### [address] [address] Eosinophils/100 WBC (Bld) 2.0 % Normal 0.0-7.0 [facility] ([place]) Comment on above: Performed By: #### C BC, ADIFF, ANEU, PSA, TSH, LIPID, CMP, GFR #### [address] [address] Lymphocytes (Bld) [#/Vol] 2.80 10 3/mcL Normal 0.77-3.85 [facility] ([place]) Comment on above: Performed By: #### C BC, ADIFF, ANEU, PSA, TSH, LIPID, CMP, GFR #### [address] [address] Lymphocytes/100 WBC (Bld) 43.0 % Normal 10.0-50.0 [facility] ([place]) Comment on above: Performed By: #### C BC, ADIFF, ANEU, PSA, TSH, LIPID, CMP, GFR #### [address] [address] Monocytes/100 WBC (Bld) 9.1 % Normal 1.7-13.0 [facility] ([place]) Comment on above: Performed By: #### C BC, ADIFF, ANEU, PSA, TSH, LIPID, CMP, GFR #### [address] [address] Neutrophils/100 WBC (Bld) 45.3 % Normal 37.0-80.0 [facility] ([place]) Comment on above: Performed By: #### C BC, ADIFF, ANEU, PSA, TSH, LIPID, CMP, GFR #### [address] [address] .GFRon 02-06-2020 GFR Non- 74 ml/min/1.73sqm Normal [facility] ([place]) Comment on above: Result Comment: GFR Population [...] ANEU, PSA, TSH, LIPID, CMP, GFR #### [address] [address] GFR 90 ml/min/1.73sqm Normal [facility] ([place]) Comment on above: Result Comment: GFR Population [...] ANEU, PSA, TSH, LIPID, CMP, GFR #### [address] [address] .NEUABSon 02-06-2020 Neutrophils (Bld) [#/Vol] 2.90 10 3/mcL Normal 2.85-6.16 [facility] ([place]) Comment on above: Performed By: #### C BC, ADIFF, ANEU, PSA, TSH, LIPID, CMP, GFR #### [address] [address] CBCon 02-06-2020 Erythrocyte distribution width (RBC) [Ratio] 12.5 % Normal 11.5-14.5 [facility] ([place]) Comment on above: Performed By: #### C BC, ADIFF, ANEU, PSA, TSH, LIPID, CMP, GFR #### [address] [address] Hematocrit (Bld) [Volume fraction] 44.9 % Normal 42.0-52.0 [facility] ([place]) Comment on above: Performed By: #### C BC, ADIFF, ANEU, PSA, TSH, LIPID, CMP, GFR #### [address] [address] Hemoglobin (Bld) [Mass/Vol] 15.2 G/dL Normal 14.0-18.0 [facility] ([place]) Comment on above: Performed By: #### C BC, ADIFF, ANEU, PSA, TSH, LIPID, CMP, GFR #### [address] [address] MCH (RBC) [Entitic mass] 31.9 pg High 27.0-31.2 [facility] ([place]) Comment on above: Performed By: #### C BC, ADIFF, ANEU, PSA, TSH, LIPID, CMP, GFR #### [address] [address] MCHC (RBC) [Mass/Vol] 33.9 G/dL Normal 31.8-35.4 [facility] ([place]) Comment on above: Performed By: #### C BC, ADIFF, ANEU, PSA, TSH, LIPID, CMP, GFR #### [address] [address] MCV (RBC) [Entitic vol] 94.0 fL Normal 80.0-94.0 [facility] ([place]) Comment on above: Performed By: #### C BC, ADIFF, ANEU, PSA, TSH, LIPID, CMP, GFR #### [address] [address] Platelet mean volume (Bld) [Entitic vol] 7.8 fL Normal 7.4-10.4 [facility] ([place]) Comment on above: Performed By: #### C BC, ADIFF, ANEU, PSA, TSH, LIPID, CMP, GFR #### [address] [address] Platelets (Bld) [#/Vol] 213 10 3/mcL Normal 130-400 [facility] ([place]) Comment on above: Performed By: #### C BC, ADIFF, ANEU, PSA, TSH, LIPID, CMP, GFR #### [address] [address] RBC (Bld) [#/Vol] 4.77 10 6/mcL Normal 4.04-6.13 [facility] ([place]) Comment on above: Performed By: #### C BC, ADIFF, ANEU, PSA, TSH, LIPID, CMP, GFR #### [address] [address] WBC (Bld) [#/Vol] 6.40 10 3/mcL Normal 4.60-10.80 [facility] ([place]) Comment on above: Performed By: #### C BC, ADIFF, ANEU, PSA, TSH, LIPID, CMP, GFR #### [address] [address] CMPon 02-06-2020 Albumin [Mass/Vol] 4.3 G/dL Normal 3.5-5.0 [facility] ([place]) Comment on above: Performed By: #### C BC, ADIFF, ANEU, PSA, TSH, LIPID, CMP, GFR #### [address] [address] Albumin/Globulin [Mass ratio] 1.4 {ratio} Normal 1.1-2.5 [facility] ([place]) Comment on above: Performed By: #### C BC, ADIFF, ANEU, PSA, TSH, LIPID, CMP, GFR #### [address] [address] ALP [Catalytic activity/Vol] 57 U/L Normal 40-135 [facility] ([place]) Comment on above: Performed By: #### C BC, ADIFF, ANEU, PSA, TSH, LIPID, CMP, GFR #### [address] [address] ALT [Catalytic activity/Vol] 49 U/L High 10-35 [facility] ([place]) Comment on above: Performed By: #### C BC, ADIFF, ANEU, PSA, TSH, LIPID, CMP, GFR #### [address] [address] AST [Catalytic activity/Vol] 25 U/L Normal 10-40 [facility] ([place]) Comment on above: Performed By: #### C BC, ADIFF, ANEU, PSA, TSH, LIPID, CMP, GFR #### [address] [address] Bili Total 0.4 mg/dL Normal 0.2-1.0 [facility] ([place]) Comment on above: Result Comment: Use of this assay is not recommended for patients undergoing treatment with eltrombopag due to the potential for falsely elevated results. Performed By: #### C BC, ADIFF, ANEU, PSA, TSH, LIPID, CMP, GFR #### [address] [address] Calcium [Mass/Vol] 9.7 mg/dL Normal 8.4-10.2 [facility] ([place]) Comment on above: Performed By: #### C BC, ADIFF, ANEU, PSA, TSH, LIPID, CMP, GFR #### [address] [address] Chloride [Moles/Vol] 104 mmol/L Normal 98-107 [facility] ([place]) Comment on above: Performed By: #### C BC, ADIFF, ANEU, PSA, TSH, LIPID, CMP, GFR #### [place] [id number] CO2 [Moles/Vol] 30 mmol/L High 22-29 [facility] ([place]) Comment on above: Performed By: #### C BC, ADIFF, ANEU, PSA, TSH, LIPID, CMP, GFR #### [address] [address] Creatinine [Mass/Vol] 1.04 mg/dL Normal 0.70-1.30 [facility] ([place]) Comment on above: Performed By: #### C BC, ADIFF, ANEU, PSA, TSH, LIPID, CMP, GFR #### [address] [address] Electrolyte Balance 8.0 mEq/L Normal [facility] ([place]) Comment on above: Performed By: #### C BC, ADIFF, ANEU, PSA, TSH, LIPID, CMP, GFR #### [address] [address] Globulin (S) [Mass/Vol] 3.0 G/dL Normal [facility] ([place]) Comment on above: Performed By: #### C BC, ADIFF, ANEU, PSA, TSH, LIPID, CMP, GFR #### [address] [address] Glucose [Mass/Vol] 99 mg/dL Normal 70-105 [facility] ([place]) Comment on above: Performed By: #### C BC, ADIFF, ANEU, PSA, TSH, LIPID, CMP, GFR #### [address] [address] Potassium [Moles/Vol] 4.2 mmol/L Normal 3.5-5.1 [facility] ([place]) Comment on above: Performed By: #### C BC, ADIFF, ANEU, PSA, TSH, LIPID, CMP, GFR #### [address] [address] Protein [Mass/Vol] 7.3 G/dL Normal 6.4-8.2 [facility] ([place]) Comment on above: Performed By: #### C BC, ADIFF, ANEU, PSA, TSH, LIPID, CMP, GFR #### [address] [address] Sodium [Moles/Vol] 142 mmol/L Normal 136-145 [facility] ([place]) Comment on above: Performed By: #### C BC, ADIFF, ANEU, PSA, TSH, LIPID, CMP, GFR #### [address] [address] Urea nitrogen [Mass/Vol] 20 mg/dL High 7 [facility] ([place]) Comment on above: Performed By: #### C BC, ADIFF, ANEU, PSA, TSH, LIPID, CMP, GFR #### [address] [address] Urea nitrogen/Creatinine [Mass ratio] 19 ratio Normal 05-07 [facility] ([place]) Comment on above: Performed By: #### C BC, ADIFF, ANEU, PSA, TSH, LIPID, CMP, GFR #### [address] [address] LIPIDon 02-06-2020 Cholesterol [Mass/Vol] 213 mg/dL High 0-200 [facility] ([place]) Comment on above: Result Comment: Chol esterol Reference Interval: Less than 200 Desirable 200-239 Borderline high risk 240 and above High risk Performed By: #### C BC, ADIFF, ANEU, PSA, TSH, LIPID, CMP, GFR #### [address] [address] Cholesterol in HDL [Mass/Vol] 75 mg/dL High 40-60 [facility] ([place]) Comment on above: Performed By: #### C BC, ADIFF, ANEU, PSA, TSH, LIPID, CMP, GFR #### [address] [address] Cholesterol in LDL [Mass/Vol] 117 mg/dL Normal 0-130 [facility] ([place]) Comment on above: Performed By: #### C BC, ADIFF, ANEU, PSA, TSH, LIPID, CMP, GFR #### [address] [address] Triglyceride [Mass/Vol] 106 mg/dL Normal 0-150 [facility] ([place]) Comment on above: Result Comment: Trig lyceride Reference Interval: Less than 150 Normal 150-199 Borderline high risk 200-499 High risk 500 or higher Very high risk Performed By: #### C BC, ADIFF, ANEU, PSA, TSH, LIPID, CMP, GFR #### Todd [address] [address] PSAon 02-06-2020 Prostate Specific Antigen 1.60 ng/mL Normal 0.00-4.00 [facility] ([place]) Comment on above: Performed By: #### C BC, ADIFF, ANEU, PSA, TSH, LIPID, CMP, GFR #### [address] [address] TSHon 02-06-2020 TSH Qn 2.31 mcIU/mL Normal 0.36-3.74 [facility] ([place]) Comment on above: Performed By: #### C BC, ADIFF, ANEU, PSA, TSH, LIPID, CMP, GFR #### [address] [address] Encounters Encounter Date Encounter Type Care Provider Facility Start: 07-18-2025 End: 07-22-2025 ambulatory SCOTT CAMPBELL Facility:[facility] Start: 07-18-2025 End: 07-22-2025 Outreach Lab SCOTT CAMPBELL [facility] Start: 07-17-2025 Non-patient / Non-visit Dr. Rafy RENEE -[facility] Start: 07-17-2025 End: 07-17-2025 ambulatory Anam Magallon Facility:[facility] Start: 07-17-2025 End: 07-17-[address] Adam Pond MD -Cardiovascular Services Work Phone: Start: 07-17-2025 End: 07-17-2025 ambulatory Adam Pond Facility:[facility] Start: 06-21-2025 End: 06-21-[address] Adam Pond MD Work Phone: -[facility] Start: 06-21-2025 End: 06-21-[address] Adam Pond MD -[facility] Work Phone: Start: 06-21-2025 End: 06-21-2025 ambulatory Adam Pond Facility:[facility] Start: 06-10-2025 End: 06-10-2025 Emergency department patient visit TONE CORDOBA MD [facility] Start: 03-24-2025 End: 03-24-2025 ambulatory SCOTT ORELLANA KENNEL KEEPER[employer]UBA INSTRUCTOR Facility:[facility] Start: 03-24-2025 End: 03-24-2025 Patient encounter procedure PATRICIA MEDEROS KENNEL [employer]EE[employer] INSTRUCTOR [facility] Start: 01-30-2025 End: 01-30-2025 ambulatory SCOTT ORELLANA KENNEL KEE[employer]UBA INSTRUCTOR Facility:[facility] Start: 01-11-2025 End: 01-11-2025 ambulatory SCOTT ORELLANA KENNEL KEEPER[employer]SCUBA INSTRUCTOR Facility:[facility] Procedures Date Procedure Procedure Detail Performing Clinician Start: 06-21-2025 MRI of brain with contrast Dr. Adam Pond MD Work Phone: Start: 06-21-2025 Radiologic examinati on eye detect foreign body Dr. Adam Pond MD Work Phone: Start: 03-12-2020 Colonoscopy PATRICIA ARNOLD KENNEL KEEPER[employer]SCUBA INSTRUCTOR Payers Date Payer Category Payer Self-pay 2025 Private Health Insurance [id number] 2025 Unknown [id number] 1965 Unknown [id number] 2.16. [id number] 1965 Unknown [id number] 2.16. [id number] 1965 Unknown [id number] 2.16. [id number] 1965 Unknown [id number] 2.16.8 [id number] 1965 Unknown [id number] 2.16.8 [id number] Unknown [id number] 2.16.8 [id number] Unknown [id number] 2.16.8 [id number] Unknown [id number] 2.16.8 [id number] Social History Date Type Detail Facility Start: 12-23-2024 End: 07-18-2025 Tobacco smoking status Ex-smoker (finding) [facility] [place] Comment on above: Just quit 2 weeks ag o. 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 Sexual Orientation [facility] Start: 08-10-2015 Sex Male (finding) [facility] ever [facility] Work Phone: Sex Male [facility] Start: 1965 Sex Assigned At Male [facility] Clinical Notes 03-23-2025 to 06-21-2025 Note Date & Type Note Facility 06-21-2025 Radiology Diagnostic study note [facility] Imaging Services [address] [place], [place] [id number] [facility] MR#: [id number] Acct: [id number] Name: REBEKAH VARGAS Rep #: [id number] : 1965 M 60 From: Lana Luther MD PCP: DELMA Carrasquillo Status: REG CL I Study:Orbits for Foreign Body Date of Exam: 06/21/25 Exam# [id number] Ordering Dr: Adam Pond MD PROCEDURE: ORBITS [...] No worrisome radiopaque foreign body. Reading Location: [id number] CC: DELMA Mederos; Dr. Adam Pond MD ~ Library Aide: Signed [facility] 06-11-2025 Hospital Discharge instructions Patient Education [...] out of the light. Wear dark glasses, rim turning finisher lights, and close the curtains. When outdoors, wear a brimmed hat. Drink lots of fluids. Sip caffeine-free flat soda to help relieve nausea. See your doctor if you get migraines or cluster headaches often. There are effective medicines to help treat or prevent them. Hormone therapy. This may help women whose migraines are related to hormonal changes during menstruation. 7136-3[address] [employer]. [address] [place] [address]. All rights reserved. This information is not intended as a substitute for professional medical care. Always follow your healthcare professional's instructions. Follow Up Care 06/10/2025 19:58:30 With:SCOTT ORELLANA Address: [address] [place] [address] [place] [phone] When:2-4 days [facility] 06-10-2025 Note Discharge Instructions Thank you for allowing [facility] to assist you with your healthcare needs. The following is important discharge information regarding your hospital visit. Diagnosis from Today's Visit Numbness What to Do Next Instructions from Your Care Team No qualifying data available. Post Acute Orders No qualifying data available. You Need to Schedule the Following Appointments Follow Up with SCOTT ORELLANA When:Within 2-4 days Where:[address] [place] [address] [place] [phone] Allergies penicillins SOB Medications Please ask your [...] out of the light. Wear dark glasses, rim turning finisher lights, and close the curtains. When outdoors, wear a brimmed hat. Drink lots of fluids. Sip caffeine-free flat soda to help relieve nausea. See your doctor if you get migraines or cluster headaches often. There are effective medicines to help treat or prevent them. Hormone therapy. This may help women whose migraines are related to hormonal changes during menstruation. 8978-5578 [employer]. [address] [place] [address], [place] [address]. All rights reserved. This information is not intended as a substitute for professional medical care. Always follow your healthcare professional's instructions. Additional Information VACCINATE! IT SAVES LIVES! Members of the community who have not yet received the COVID-19 vaccine and would like to receive it can visit one of [facility] vaccine clinics. There are many vaccine clinic locations within the [facility]. For locations and available times, please visit [email or web address].[place].g [email or web address] It is important to note that some COVID mobile vaccine clinics are held outdoors and may be canceled in rainy or stormy conditions. To learn more about pediatric vaccinations (ages 5-11), we invite you to visit the [facility] webpage. https://www.[email or web address].org/pa ges/8880-Dfhuz-Ryywuydtite-Freque wvbe-Blpqp-Ehutuqqcv.html To learn more about the COVID-19 vaccine, we invite you to visit the CDC website for a list of frequently asked questions. https://www.cdc.gov/coronavirus/2 019-ncov/vaccines/faq.html [facility] Access Instructions: Stay connected with your healthcare team and access your personal medical information anytime with the [facility] Patient Portal. If you would like a full copy of your medical records please contact the [facility] Medical Records Department Thursday through Thursday between 8a.m. and 4:30p.m. Please follow the directions below to access the portal: 1.Access the email account you provided upon registration to the [facility].2.Look for an invitation email from [facility].3.Open the email and access the invitation link: Accept Invitation to [employer]4.Fill in the required parks to create your account. Sign into [email or web address] with your username and password that you [...] you will allow to register on the [employer] Patient Portal for access to your information. You can also access the [employer] Patient Portal on the [employer]. Simply click on Health Records under Health Data and then click on the [employer] logo. HOW TO SAFELY DISPOSE OF PRESCRIPTION [...] Call your local pharmacy or go to http://Buyt.In.Virobay/9T8Qy4r to find one close to you.3.Make use of household items: Use cat litter or old coffee grounds to dispose medications if other options are not available. Mix your drugs with these household products, seal them in an airtight container and throw it into the garbage. Call [facility]: [phone] to be sure your drugs can be [...] aware that I should contact my doctor. Patient/Straight Edger Signature: Date/Time: Relationship to Patient: ____ Witness Name/Signature: Date/Time: [facility] 06-10-2025 Note Exam Date Time Procedure Performing Provider Status 06/10/25 9:[address] Head or Brain w/o Contrast WINSOME CORNELIUS MD; Auth (Verified) [id number] ORIGINAL EXAMINATION: CT OF THE HEAD WITHOUT [...] Date: 06/10/2025 9:24:33 PM Ordering Provider: TONE [facility]08-30-2025 Note* Exam Date Time Procedure Performing Provider Status 06/10/25 8:59 PM XR Chest 1 View MARIO LOW MD; [facility] (Verified) [id number] ORIGINAL EXAMINATION: ONE XRAY VIEW OF THE [...] Date: 06/10/2025 10:17:12 PM [facility] Exam Date Time Procedure Performing Provider Status 06/10/25 8:20 PM EKG [ED AOH] - CV TONE CORDOBA MD; Auth (Verified) ECG Final Report Sinus rhythm Electronic Signature: TONE CORDOBA MD 06/10/2025 20:30:10 [facility]06-13-2025 Note* Exam Date Time Procedure Performing Provider Status 03/24/25 4:49 PM XR Spine Cervical 2 or 3 Views Rowena PALAFOX DO; Auth (Verified) [id number] ORIGINAL EXAMINATION: 4 XRAY VIEWS OF THE [...] 03/24/2025 4:53:21 PM Ordering Provider: PATRICIA MEDEROS [facility]06-12-2025 Evaluation + Plan note Future Scheduled Tests Radiology* XR Spine Cervical AP/LAT 03/23/25 [facility] Evaluation + Plan note Future Appointments Appointment Date:08/29/2025 08:00:00 AM Scheduled Provider:SCOTT ORELLANA [facility] Appointment Type:PC OV Future Scheduled Tests Radiology* MRI Brain w/ + w/o Contrast 06/13/25 * XR Spine Cervical AP/LAT 03/23/25 [facility] Evaluation noteNo assessment information available [facility] Work Phone: Hospital course Narrative No data available for this section [facility] Hospital Discharge instructions No data available for this section [facility] Progress note No data available for this section [facility] Reason for referral (narrative)No reason for referral information [facility] Work Phone: Summary Purpose Family History [...] Admit Date TIA June 21, 2025 1:21pm Chief Complaint Admit Date TIA June 21, 2025 1:21pm TIA July 17, 2025 1: 00pm Additional Source Comments (unrecognized sect ion and content) No Status Records FoundNo Status Records FoundNo Status Records Found INFORMATION SOURCE (unrecogn ized section and content) DATE CREATED AUTHOR 03/26/2020 [facility] [facility] DATE CREATED AUTHOR AUTHOR'S ORGANIZ ATION 07/24/2025 [facility] DATE CREATED AUTHOR AUTHOR'S ORGANIZ ATION 07/24/2025 [facility] Patient Care team informatio n (unrecognized section and content) Team Status: Active Member Role/Relationship Status Dates Patricia Mederos NP, NP-C Primary care physician Active Team Status: Inactive Member Role/Relationship Status Dates Dr. Adam Pond MD Attending physician Active Start: June 21, 2025 End: June 21, 2025 Dr. Adam Pond MD Referring Provider Active Start: June 21, 2025 End: June 21, 2025 Patricia Mederos NP, BEEF SELECTOR-C Primary care physician Active Start: June 21, 2025 End: June 21, 2025 Team Status: Inactive Member Role/Relationship Status Dates Dr. Adam Pond MD Attending physician Active Start: July 17, 2025 End: July 17, 2025 Dr. Adam Pond MD Referring Provider Active Start: July 17, 2025 End: July 17, 2025 Patricia Mederos NP, BEEF SELECTOR-C Primary care physician Active Start: July 17, 2025 End: July 17, 2025 Team Status: Active Member Role/Relationship Status Dates Patricia Mederos NP, BEEF SELECTOR-C Primary care physician Active Start: July 17, 2025 Dr. Anam Magallon MD Attending physician Active Start: July 17, 2025 Goals (unrecognized section and content) Goals [...] BE BASED ON THE PRIMARY CLINICAL RECORDS. [employer] provides no warranty or guarantee of the accuracy or completeness of information in this document.
[2025-09-17 20:44] VITALS: BP 115/72; PULSE 61; RESP 16; TEMP 36.4; O2SAT 98
[2025-09-17] MEDS: Mixture 30 ML Bottle TOPICAL (20:59)
[2025-09-17 21:30] VITALS: BP 116/70; PULSE 74
[2025-09-17 21:32] LABS: Hematocrit 39.9 % (40-54); Hemoglobin 13.7 g/dL (13.0-16.5); Immature Granulocytes Count 0.010 X10^3/uL (0.0-0.0); Mean Corp Hgb Conc 34.3 g/dL (32-36); Mean Corpuscular Volume 89.5 fL (80-94); Mean Platelet Vol. 11.9 fl (6.2-12.0); NRBC Flagged by Analyzer 0 % (0-5); POSITIVE COUNT YES; Platelet Count 53 K/mm3 (150-450); RBC Distribution Width CV 11.8 % (11.6-14.6); RBC Distribution Width SD 38.5 fl (35.1-43.9); Red Blood Count 4.46 M/mm3 (4.6-6.2); White Blood Count 7.6 K/mm3 (4.4-11.0)
[2025-09-17 21:34] LABS: Differential Indicated SCAN CRITERIA MET
[2025-09-17 22:07] LABS: AST(SGOT) 22 U/L (<=37); Alanine Aminotransfer ALT/SGPT 23 U/L (<=46); Albumin, Serum 4.3 g/dL (3.4-4.8); Alkaline Phosphatase 41 U/L (40-129); Anion Gap 13 (5-15); BUN 22 mg/dL (4-19); BUN/Creat Ratio 27.6 RATIO (10-20); Calcium,Total 9.2 mg/dL (7.6-11.0); Carbon Dioxide 23.5 mmol/L (21.0-32.0); Chloride 108 mmol/L (98-108); Estimated Creatinine Clearance 104.58 ml/min (50-250); Globulin 2.4 g/dL (2.2-4.2); Glucose 88 mg/dL (70-99); Potassium 4.1 mmol/L (3.3-5.1)
[2025-09-17 22:20] VITALS: BP 120/61; PULSE 74; RESP 16; TEMP 36.6; O2SAT 96
[2025-09-17 22:55] LABS: Differential Comment SCANNED
== END 2025-09-17 22:21 | disposition home or self-care (01) ==
PROVIDERS: Emergency Provider Emergency Medicine; PCP Nurse Practitioner Family; Visit Provider Emergency Medicine
DX: R04.0 Epistaxis (principal); Z87.891 Personal history of nicotine dependence; Z79.02 Long term (current) use of antithrombotics/antiplatelets; Z86.73 Personal history of transient ischemic attack (TIA), and cerebral infarction without residual deficits
CPT/HCPCS: 30901; 80053; 85025; 99284